=== PATIENT | female | born 1960 | race Caucasian/White ===

== ENCOUNTER → 2016-08-16 | Outpatient (CLI) | payer OTHER ==
--- NOTE | 2016-08-16 17:33 | US ---
EXAMINATION TYPE: US pelvis complete transvag DATE OF EXAM: 08/16/2016 1:39 PM COMPARISON: MRI pelvis 02 February 2011 CLINICAL HISTORY: N95.0 Post menopausal bleeding. Left pelvic pain, h/o uterine fibroid, h/o cervical polyp TECHNIQUE: TA and TV endovaginal scanning performed for better evaluation of the uterus and ovaries Date of LMP: 2 yrs ago EXAM MEASUREMENTS: Uterus: 5.3 x 4.4 x 2.8 cm Endometrial Stripe: 0.4 cm Right Ovary: 1.7 x 2.1 x 2.4 cm Left Ovary: 1.8 x 1.9 x 1.0 cm Grayscale, color Doppler imaging performed. 1. Uterus: Anteverted hypoechoic focus seen with some areas of shadowing, compatible with 2.6cm pro bable fundal fibroid 2. Endometrium: wnl 3. Right Ovary: wnl 4. Left Ovary: wnl 5. Bilateral Adnexa: wnl 6. Posterior cul-de-sac: wnl IMPRESSION: Fibroid uterus.
== END | disposition home or self-care (01) ==
LOC: RADUSWWP 12:40
PROVIDERS: ATTEND Family Medicine
DX: D25.9 Leiomyoma of uterus, unspecified (principal)
CPT/HCPCS: 76830; 76856

== ENCOUNTER → 2016-09-06 | Outpatient (CLI) | payer OTHER ==
--- NOTE | 2016-09-06 11:06 | CT ---
EXAMINATION TYPE: CT ABDOMEN WO/W CON DATE OF EXAM: 09/06/2016 COMPARISON: September 30, 2015 HISTORY: Benign neoplasm of adrenal gland CT DLP: 882 mGycm Automated exposure control for dose reduction was used. TECHNIQUE: Helical acquisition of images was performed from the lung bases through the top of iliac crest to include entire abdomen. CONTRAST: Performed with Oral Contrast and without and with IV Contrast, patient injected with 100 mL of Omnipaque 300. FINDINGS: LUNG BASES: No significant abnormality is appreciated. LIVER/GB: No significant abnormality is appreciated. PANCREAS: No significant abnormality is seen. SPLEEN: No significant abnormality is seen. ADRENALS: The previously seen 3 cm left adrenal nodule remains homogeneous in its CT attenuation and currently demonstrates CT attenuation measuring approximately -15 Hounsfield units with noncontrast C T, approximately 35 Hounsfield units on venous phase contrast CT, and approximately 0 Hounsfield unit s with urogram phase CT. These findings are in keeping with benign adrenal adenoma. KIDNEYS: No significant abnormality is seen. BOWEL: No significant abnormality is seen. LYMPH NODES: No significant abnormality is seen. OSSEOUS STRUCTURES: No significant abnormality is seen. FREE AIR: No free air is visualized. OTHER: No incidentals. IMPRESSION: STABLE APPEARANCE; LEFT ADRENAL NODULE CONSISTENT WITH BENIGN ADRENAL ADENOMA.
== END | disposition home or self-care (01) ==
LOC: RADCTMAIN 06:56
PROVIDERS: ATTEND Internal Medicine Endocrinology, Diabetes & Metabolism
DX: E27.8 Other specified disorders of adrenal gland (principal); D35.00 Benign neoplasm of unspecified adrenal gland
CPT/HCPCS: 74170; Q9967

== ENCOUNTER → 2017-02-01 | Outpatient (CLI) | payer OTHER ==
--- NOTE | 2017-02-01 12:30 | MM ---
Reason for exam: additional evaluation requested from prior study. Last mammogram was performed 1 year ago. History: Patient is postmenopausal and is nulliparous. Family history of breast cancer in mother at age 86, breast cancer in cousin at age 45, and premenopausal breast cancer in sister at age 39. Silicone gel implants in both breasts, August 2011. Physical Findings: Nurse did not find any significant physical abnormalities on exam. MG 3D Diag Mammo Imp W/Cad [facility] Bilateral CC, MLO, and ID view(s) were taken. Prior study comparison: January 20, 2016, bilateral MG diag mamm implants [facility] w CAD. September 04, 2014, bilateral MG diag mamm implants [facility] w CAD. The breast tissue is heterogeneously dense. This may lower the sensitivity of mammography. Finding: There are typically benign stale calcifications dating back to 2013. No suspicious abnormality. No significant changes in finding since January 20, 2016 and September 04, 2014. These results were verbally communicated with the patient and result sheet given to the patient on 02/01/17. ASSESSMENT: Benign, BI-RAD 2 RECOMMENDATION: Routine screening mammogram of both breasts in 1 year.
== END | disposition home or self-care (01) ==
LOC: RADMAMWWP 10:39
PROVIDERS: ATTEND Family Medicine
DX: R92.8 Other abnormal and inconclusive findings on diagnostic imaging of breast (principal)
CPT/HCPCS: G0204; G0279

== ENCOUNTER → 2018-03-16 | Outpatient (CLI) | payer BC ==
--- NOTE | 2018-03-18 11:57 | US ---
EXAMINATION TYPE: US thyroid st tissue head/neck DATE OF EXAM: 03/16/2018 COMPARISON: NONE CLINICAL HISTORY: R59.0 localized enlarged lymph nodes. Lymph nodes noted bilaterally, more prominent on right. Largest measures 1.1 x 0.6 x 0.8cm IMPRESSION: Technologist slaughter prominent but benign-appearing lymph nodes with preservation fatty hi lum that all measures subcentimeter on short axis. No suspicious mass or adenopathy clearly identifie d on images saved.
== END ==
LOC: RADUSWWP 15:59
PROVIDERS: ATTEND Family Medicine
DX: R59.0 Localized enlarged lymph nodes (principal)
CPT/HCPCS: 76536

== ENCOUNTER → 2018-11-12 | Outpatient (CLI) | payer BC ==
[2018-11-12 10:55] LABS: Basophils % (A) 1 %; Eosinophils # (A) 0.1 k/uL (0-0.7); Eosinophils % (A) 2 %; HCT 42.4 % (34.0-46.0); HGB 14.1 gm/dL (11.4-16.0); Lymphocytes # (A) 1.8 k/uL (1.0-4.8); Lymphocytes % (A) 30 %; MCH 28.5 pg (25.0-35.0); MCHC 33.2 g/dL (31.0-37.0); MCV 85.7 fL (80.0-100.0); Mean Platelet Volume 7.6; Monocytes # (A) 0.4 k/uL (0-1.0); Monocytes % (A) 6 %; Neutrophils # (A) 3.7 k/uL (1.3-7.7); Neutrophils % (A) 60 %; Platelet Count 227 k/uL (150-450); RBC 4.95 m/uL (3.80-5.40); RDW 13.1 % (11.5-15.5); WBC 6.1 k/uL (3.8-10.6)
[2018-11-12 16:23] LABS: Vitamin D 25 Hydroxy 23.4 ng/mL (30.0-100.0)
[2018-11-12 16:29] LABS: African American GFR (CKD) 111.5 (60.0-200.0); Albumin 3.9 g/dL (3.80-4.90); Albumin/Globulin Ratio 2.29 (1.60-3.17); Anion Gap 5.8 mmol/L (4.00-12.00); BUN/Creat Ratio 22.86 Ratio (12.00-20.00); Calcium 9.4 mg/dL (8.7-10.3); Carbon Dioxide 29.2 mmol/L (21.6-31.8); Globulin 1.7 g/dL (1.6-3.3); Non-African American GFR(CKD) 96.2 (60.0-200.0); Potassium 4.6 mmol/L (3.5-5.5); Total Bilirubin 0.5 mg/dL (0.2-1.2); Total Protein 5.6 g/dL (6.2-8.2)
== END | disposition home or self-care (01) ==
LOC: LABWHC1 09:50
PROVIDERS: ATTEND Family Medicine
DX: R53.81 Other malaise (principal)
CPT/HCPCS: 36415; 80053; 82306; 82607; 84443; 85025

== ENCOUNTER → 2018-11-23 | Outpatient (CLI) | payer BC ==
--- NOTE | 2018-11-28 09:10 | MM ---
Reason for exam: screening (asymptomatic). Last mammogram was performed 1 year and 10 months ago. History: Patient is postmenopausal and is nulliparous. Family history of breast cancer in mother at age 86, breast cancer in cousin at age 45, and premenopausal breast cancer in sister at age 39. Silicone gel implants in both breasts, August 2011. Physical Findings: A clinical breast exam by your physician is recommended on an annual basis and results should be correlated with mammographic findings. MG Screening Mammo Implant/CAD Bilateral CC, MLO, and ID view(s) were taken. Prior study comparison: February 01, 2017, bilateral MG 3d diag mammo imp w/cad [facility]. January 20, 2016, bilateral MG diag mamm implants [facility] w CAD. The breast tissue is heterogeneously dense. This may lower the sensitivity of mammography. Bilateral retropectoral silicone implants. No significant changes when compared with prior studies. ASSESSMENT: Negative, BI-RAD 1 RECOMMENDATION: Routine screening mammogram of both breasts in 1 year.
== END ==
LOC: RADMAMWWP 12:44
PROVIDERS: ATTEND Family Medicine
DX: Z12.31 Encounter for screening mammogram for malignant neoplasm of breast (principal)
CPT/HCPCS: 77067

== ENCOUNTER → 2019-01-14 | Outpatient (CLI) | payer BC ==
--- NOTE | 2019-01-14 10:08 | XR ---
EXAMINATION TYPE: XR foot complete RT DATE OF EXAM: 01/14/2019 COMPARISON: None HISTORY: Right foot pain TECHNIQUE: 3 view right foot FINDINGS: No acute fractures or dislocations are evident. Joint spaces are preserved. The soft tissue s are normal. Large Achilles tendon calcaneal heel spurs present. IMPRESSION: 1. No acute osseous abnormality. 2. Follow-up studies can be performed 710 days acute trauma and continued pain.
== END | disposition home or self-care (01) ==
LOC: RADXRMAIN 09:50
PROVIDERS: ATTEND Physician Assistant
DX: M79.671 Pain in right foot (principal)

== ENCOUNTER 2019-02-11 15:28 | Emergency (ER) | payer BC ==
[2019-02-11 15:41] VITALS: RESP 18
[2019-02-11] MEDS ORDERED: ACETAMINOPHEN TAB 500 MG TAB PO STA (16:16)
[2019-02-11] MEDS ORDERED: SODIUM CHLORIDE 0.9% 1,000 ML IV STA (16:16)
[2019-02-11] MEDS ORDERED: ONDANSETRON 4 MG/2 ML VIAL IVP STA (16:16)
--- NOTE | 2019-02-11 16:36 | ED ---
General Adult HPI - General Chief complaint: Abdominal Pain Stated complaint: Losing weight Time Seen by Provider: 02/11/19 15:57 Source: patient Mode of arrival: ambulatory Limitations: no limitations - History of Present Illness Initial comments: Patient is a 58-year-old female presenting to emergency Department with complaints of nausea, vomiting, cough for about one week now. Patient states she thinks she had the stomach flu one week ago with fever, nausea, vomiting, diarrhea. Patient states most her symptoms have decreased some but she is still unable to eat and she has lost approximately 10 pounds in 5 days. Patient states she feels fatigued and now has had a cough and fever for the last 3 days. Patient continues to feel weak and mild nausea. Patient denies any more diarrhea, chest pain, headaches, blurry vision. Patient has denies any urinary complaints. Patient has no other complaints at this time. Upon arrival to the ER, temperature is 99.8, rest of vitals are normal. - Related Data Home Medications Medication Instructions Recorded Confirmed Cholecalciferol [Vitamin D3] 2,000 unit PO DAILY 01/20/16 01/20/16 Ferrous Sulfate [Feosol] 325 mg PO DAILY 01/20/16 01/20/16 Previous Rx's Medication Instructions Recorded Doxycycline Monohydrate [Monodox] 100 mg PO BID 7 Days #14 cap 02/11/19 Ondansetron Odt [Zofran Odt] 4 mg PO Q8HR PRN #10 tab 02/11/19 Allergies Allergy/AdvReac Type Severity Reaction Status Date / Time codeine Allergy Confusion Verified 02/11/19 15:34 erythromycin base Allergy Rash/Hives Verified 02/11/19 15:34 Review of Systems ROS Statement: Those systems with pertinent positive or pertinent negative responses have been documented in the HPI. ROS Other: All systems not noted in ROS Statement are negative. Past Medical History Past Medical History: No Reported History Additional Past Medical History / Comment(s): 08/11/[address] [facility] ER with back pain radiating to chest which has been going on for approximately 2 weeks. Pain became severe yesterday AM and started radiating into L arm. Pt noticed L arm pain was less if she elevated that arm. Past HX: Hiatal hernia, anemia History of Any Multi-Drug Resistant Organisms: None Reported Past Surgical History: Breast Surgery Additional Past Surgical History / Comment(s): Bilateral breast augmentation, EGD Past Anesthesia/Blood Transfusion Reactions: Motion Sickness Past Psychological History: Depression Smoking Status: Never smoker Past Alcohol Use History: None Reported Past Drug Use History: None Reported - Past Family History Father Family Medical History: Coronary Artery Disease (CAD), Dementia, Myocardial Infarction ([place]) Mother Family Medical History: Cancer, Coronary Artery Disease (CAD), Dementia, Diabetes Mellitus, GI Bleed, Myocardial Infarction ([place]) Additional Family Medical History / Comment(s): Mother had breast cancer. Pt has a 1st cousin who recieved a heart transplant. Sister(s) Family Medical History: Cancer, Coronary Artery Disease (CAD), Seizure Disorder Additional Family Medical History / Comment(s): Sister is . She had breast cancer. She was developmentally delayed. She also had epilepsy. General Exam - General Exam Comments Initial Comments: GENERAL: Patient appears fatigued, hunched over in discomfort. HEAD: Atraumatic, normocephalic. EYES: Pupils equal round and reactive to light, extraocular movements intact, sclera anicteric, conjunctiva are normal. ENT: TMs normal, nares patent, oropharynx clear without exudates. Moist mucous membranes. NECK: Normal range of motion, supple without lymphadenopathy or JVD. LUNGS: Breath sounds clear to auscultation bilaterally and equal. No wheezes rales or rhonchi. HEART: Regular rate and rhythm without murmurs, rubs or gallops. ABDOMEN: Mild generalized tenderness to palpation in epigastric and mid abdomen region. Soft, normoactive bowel sounds. No guarding, no rebound. No masses appreciated. : Deferred EXTREMITIES: Normal range of motion, no pitting or edema. No clubbing or cyanosis. NEUROLOGICAL: Cranial nerves II through XII grossly intact. Normal speech, normal gait. PSYCH: Normal mood, normal affect. SKIN: Warm, Dry, normal turgor, no rashes or lesions noted. Limitations: no limitations Course Vital Signs 02/11/19 02/11/19 02/11/19 15:34 16:45 17:28 Temperature 99.8 F H 99.1 F Pulse Rate 73 76 Respiratory 18 18 18 Rate Blood Pressure 102/65 110/69 O2 Sat by Pulse 94 L 94 L Oximetry 02/11/19 02/11/19 17:50 18:31 Temperature 100.9 F H Pulse Rate 67 Respiratory 18 Rate Blood Pressure 106/73 O2 Sat by Pulse 97 94 L Oximetry Medical Decision Making - Medical Decision Making Patient is a 58-year-old female presenting with fatigue, nausea, cough. Patient is recently getting over a stomach flu. Patient had slight temperature upon arrival, rest of vital signs are normal. Patient's exam only reveals some mild generalized abdominal tenderness. No other acute findings on exam. Lab work shows no acute abnormalities, influenza is negative. Chest x-ray shows right lower lobe pneumonia. I did request a UA to rule out a UTI however patient not able to produce a urine sample at this time and does not want to wait for a ur ine sample. I discussed with patient that we will start her on antibiotics for her pneumonia. Patient will be started on doxycycline since she is ALLERGIC to azithromycin. Patient was also given Zofran for occasional nausea. Patient will also continue with Tylenol or Motrin as needed for her fever. Patient is stable for discharge at this time and she is in agreement with this plan of care. Patient will follow up with her PCP in 1- 3 days. Return parameters were discussed with the patient she verbalized understanding. Case discussed with Dr. Palmer. - Lab Data Result diagrams: 02/11/19 16:37 02/11/19 16:37 Lab Results 02/11/19 02/11/19 02/11/19 Range/Units 16:30 16:37 16:37 WBC 8.4 (3.8-10.6) k/uL RBC 4.65 (3.80-5.40) m/uL Hgb 13.4 (11.4-16.0) gm/dL Hct 38.9 (34.0-46.0) % MCV 83.8 (80.0-100.0) fL MCH 28.8 (25.0-35.0) pg MCHC 34.4 (31.0-37.0) g/dL RDW 12.5 (11.5-15.5) % Plt Count 230 (150-450) k/uL Neutrophils % 86 % Lymphocytes % 7 % Monocytes % 5 % Eosinophils % 0 % Basophils % 0 % Neutrophils # 7.2 (1.3-7.7) k/uL Lymphocytes # 0.6 L (1.0-4.8) k/uL Monocytes # 0.4 (0-1.0) k/uL Eosinophils # 0.0 (0-0.7) k/uL Basophils # 0.0 (0-0.2) k/uL Sodium 135 L (137-145) mmol/L Potassium 4.1 (3.5-5.1) mmol/L Chloride 103 (98-107) mmol/L Carbon Dioxide 26 (22-30) mmol/L Anion Gap 6 mmol/L BUN 8 (7-17) mg/dL Creatinine 0.71 (0.52-1.04) mg/dL Est GFR (CKD-EPI)AfAm >90 (>60 ml/min/1.73 sqM) Est GFR (CKD-EPI)NonAf >90 (>60 ml/min/1.73 sqM) Glucose 106 H (74-99) mg/dL Calcium 8.6 (8.4-10.2) mg/dL Total Bilirubin 0.6 (0.2-1.3) mg/dL AST 27 (14-36) U/L ALT 22 (9-52) U/L Alkaline Phosphatase 64 (38-126) U/L Total Protein 5.8 L (6.3-8.2) g/dL Albumin 3.2 L (3.5-5.0) g/dL Influenza Type A RNA Not Detected (Not Detectd) Influenza Type B (PCR) Not Detected (Not Detectd) Disposition Clinical Impression: Pneumonia, Dehydration, Gastroenteritis Disposition: HOME SELF-CARE Condition: Stable Instructions (If sedation given, give patient instructions): Bacterial Pneumonia (ED) Additional Instructions: Please return to the Emergency Department if symptoms worsen or any other concerns. Take anabolic as prescribed. Use Zofran as needed for additional nausea. Continue to increase fluid intake and introduce foods slowly. Follow-up with PCP in 1- 3 days. Prescriptions: Doxycycline Monohydrate [Monodox] 100 mg PO BID 7 Days #14 cap Ondansetron Odt [Zofran Odt] 4 mg PO Q8HR PRN #10 tab PRN Reason: Nausea Is patient prescribed a controlled substance at d/c from ED?: No Referrals: Jacob Velásquez MD [Primary Care Provider] - 1-2 days
--- NOTE | 2019-02-11 16:36 | XR ---
EXAMINATION TYPE: XR chest 2V DATE OF EXAM: 02/11/2019 COMPARISON: 08/11/2014 HISTORY: Cough and congestion TECHNIQUE: Frontal and lateral views of the chest are obtained. FINDINGS: There is a new right lower lobe opacity. Emphysematous changes of the lungs with biapical lucency is seen. Diffuse osseous demineralization is noted. Mediastinal shift to the right secondary to patient rotation. IMPRESSION: Right lower lobe consolidation most radiographically compatible with pneumonia and trace parapneumonic effusion. Follow-up to resolution is recommended.
[2019-02-11 17:27] LABS: Basophils % (A) 0 %; Eosinophils % (A) 0 %; HCT 38.9 % (34.0-46.0); HGB 13.4 gm/dL (11.4-16.0); Lymphocytes # (A) 0.6 k/uL (1.0-4.8); Lymphocytes % (A) 7 %; MCH 28.8 pg (25.0-35.0); MCHC 34.4 g/dL (31.0-37.0); MCV 83.8 fL (80.0-100.0); Monocytes # (A) 0.4 k/uL (0-1.0); Monocytes % (A) 5 %; Neutrophils # (A) 7.2 k/uL (1.3-7.7); Neutrophils % (A) 86 %; Platelet Count 230 k/uL (150-450); RBC 4.65 m/uL (3.80-5.40); RDW 12.5 % (11.5-15.5); WBC 8.4 k/uL (3.8-10.6)
[2019-02-11 17:34] LABS: ALT 22 U/L (9-52); AST 27 U/L (14-36); African American GFR (CKD) >90 (>60 ml/min/1.73 sqM); Albumin 3.2 g/dL (3.5-5.0); Alkaline Phosphatase 64 U/L (38-126); Anion Gap 6 mmol/L; Blood Urea Nitrogen 8 mg/dL (7-17); Calcium 8.6 mg/dL (8.4-10.2); Carbon Dioxide 26 mmol/L (22-30); Chloride 103 mmol/L (98-107); Glucose 106 mg/dL (74-99); Non-African American GFR(CKD) >90 (>60 ml/min/1.73 sqM); Potassium 4.1 mmol/L (3.5-5.1); Sodium 135 mmol/L (137-145); Total Bilirubin 0.6 mg/dL (0.2-1.3); Total Protein 5.8 g/dL (6.3-8.2)
[2019-02-11] MEDS ORDERED: DOXYCYCLINE 100 MG CAP PO STA (18:13)
[2019-02-11 18:33] VITALS: BP 106/73; PULSE 67; TEMP 100.9
== END 2019-02-11 18:31 | disposition home or self-care (01) ==
LOC: EC 15:28
DX: K21.9 Gastro-esophageal reflux disease without esophagitis (principal); J18.9 Pneumonia, unspecified organism; E86.0 Dehydration; D64.9 Anemia, unspecified; Z88.5 Allergy status to narcotic agent; Z88.1 Allergy status to other antibiotic agents
CPT/HCPCS: 36415; 80053; 85025; 87502; 71046; 99284; 96374; 96361; J2405

== ENCOUNTER → 2019-03-07 | Outpatient (CLI) | payer BC ==
--- NOTE | 2019-03-07 17:11 | XR ---
Right RIBS and chest x-ray HISTORY: Chest pain 4 views of the right ribs and 2 views of the chest Correlation to chest x-ray 02/11/2019 There is no evident displaced rib fracture. There is a spinal curvature present. There is been interv al improved aeration at the right lung base, some minimal subsegmental atelectatic change or scarring persists. No evident pneumothorax or pleural effusion. Breast prostheses are present. IMPRESSION: Improvement in patient's pneumonia.
== END | disposition home or self-care (01) ==
LOC: RADXRMAIN 15:46
PROVIDERS: ATTEND Physician Assistant
DX: J18.9 Pneumonia, unspecified organism (principal)
CPT/HCPCS: 71046

== ENCOUNTER → 2019-03-18 | Outpatient (CLI) | payer BC ==
--- NOTE | 2019-03-18 14:53 | XR ---
EXAMINATION TYPE: XR chest 2V, XR ribs RT DATE OF EXAM: 03/18/2019 COMPARISON: NONE HISTORY: Shortness of breath TECHNIQUE: Frontal and lateral views of the chest are obtained. FINDINGS: Scattered senescent parenchymal changes noted. Hyperinflation compatible with COPD. No evidence for infiltrate. No evidence for atelectasis. Heart size is stable. Mediastinal structures are stable and grossly unremarkable. No evidence for hilar prominence. Degenerative changes dorsal spine. IMPRESSION: 1. No evidence for acute pulmonary disease. EXAMINATION TYPE: XR chest 2V, XR ribs RT DATE OF EXAM: 03/18/2019 CLINICAL HISTORY: Pain, Fall Four views of the ribs fail demonstrate evidence for displaced rib fracture or secondary sign of rib fracture. Visualized lungs are clear. No evidence for pneumothorax. IMPRESSION: 1. No displaced rib fractures seen. ICD 10 NO FRACTURE, INITIAL EVALUATION
== END | disposition home or self-care (01) ==
LOC: RADXRMAIN 14:25
PROVIDERS: ATTEND Family Medicine
DX: R07.89 Other chest pain (principal)
CPT/HCPCS: 71046

== ENCOUNTER → 2019-03-28 | Outpatient (CLI) | payer BC ==
[2019-03-28 07:32] LABS: Basophils % (A) 1 %; Eosinophils # (A) 0.1 k/uL (0-0.7); Eosinophils % (A) 2 %; HCT 41.8 % (34.0-46.0); HGB 13.8 gm/dL (11.4-16.0); Lymphocytes # (A) 1.5 k/uL (1.0-4.8); Lymphocytes % (A) 33 %; MCH 29.1 pg (25.0-35.0); MCHC 32.9 g/dL (31.0-37.0); MCV 88.3 fL (80.0-100.0); Mean Platelet Volume 8.4; Monocytes # (A) 0.2 k/uL (0-1.0); Monocytes % (A) 5 %; Neutrophils # (A) 2.6 k/uL (1.3-7.7); Neutrophils % (A) 58 %; Platelet Count 222 k/uL (150-450); RBC 4.74 m/uL (3.80-5.40); RDW 13.1 % (11.5-15.5); WBC 4.5 k/uL (3.8-10.6)
[2019-03-28 12:04] LABS: African American GFR (CKD) 111.5 (60.0-200.0); Albumin 3.7 g/dL (3.80-4.90); Albumin/Globulin Ratio 2.47 (1.60-3.17); BUN/Creat Ratio 17.14 Ratio (12.00-20.00); Calcium 9.2 mg/dL (8.7-10.3); Chol/HDL Ratio 2.91; Globulin 1.5 g/dL (1.6-3.3); LDL Cholesterol,Calculated 115.4 mg/dL (0.0-131.0); Non-African American GFR(CKD) 96.2 (60.0-200.0); Potassium 5.6 mmol/L (3.5-5.5); Total Bilirubin 0.5 mg/dL (0.3-1.2); Total Protein 5.2 g/dL (6.2-8.2); VLDL Calculation 10.6 mg/dL (5.00-40.00)
== END | disposition home or self-care (01) ==
LOC: LABWHC1 06:57
PROVIDERS: ATTEND Family Medicine
DX: Z00.00 Encounter for general adult medical examination without abnormal findings (principal)
CPT/HCPCS: 36415; 80053; 80061; 82306; 85025

== ENCOUNTER → 2019-04-01 | Outpatient (CLI) | payer BC | LOC: LABWHC1 13:53 | PROVIDERS: ATTEND Family Medicine | DX: E87.5 Hyperkalemia (principal) | CPT/HCPCS: 36415; 84132 ==

== ENCOUNTER → 2019-04-24 | Outpatient (CLI) | payer BC ==
--- NOTE | 2019-04-24 21:37 | CT ---
EXAMINATION TYPE: CT angio chest DATE OF EXAM: 04/24/2019 COMPARISON: CT chest July 30, [address] May 28, 2015 HISTORY: chest pain CT DLP: 174.3 mGycm. Automated Exposure Control for Dose Reduction was Utilized. CONTRAST: CTA scan of the thorax is performed with IV Contrast, patient injected with 61cc mL of Isovue 370, pu lmonary embolism protocol. MIP Images are created on CT scanner and reviewed. FINDINGS: LUNGS: Stable subcentimeter scarlike opacity posterior inferior right upper lobe axial image 59. Tommy tional mild scattered areas of scarring and/or atelectasis throughout both lungs most prominent near diaphragm. No new greater than 5 mm nodules or masses. No pleural effusion or pneumothorax noted bila terally. Stable mild biapical pleural/parenchymal scarring. MEDIASTINUM: There is satisfactory enhancement of the pulmonary artery and its branches, there is no CT evidence for pulmonary embolism. There are no greater than 1 cm hilar or mediastinal lymph nodes. No pericardial effusion is seen. Heart size upper limits of normal. OTHER: Stable low dense 2.2 x 1.7 cm left adrenal mass axial image 150 consistent with benign lipid r ich adenoma. Redemonstration of bilateral subpectoral breast implants. Occasional subcentimeter low d ense lesions throughout the liver is stable presumed benign. IMPRESSION: 1. Chronic parenchymal changes without suspicious acute pulmonary process. 2. No CT evidence for acute pulmonary embolism.
== END | disposition home or self-care (01) ==
LOC: RADCTMAIN 16:29
PROVIDERS: ATTEND Internal Medicine Sleep Medicine
DX: I26.99 Other pulmonary embolism without acute cor pulmonale (principal); R91.8 Other nonspecific abnormal finding of lung field; R07.9 Chest pain, unspecified
CPT/HCPCS: 71275; 36415; Q9967

== ENCOUNTER → 2019-07-31 | Outpatient (CLI) | payer BC ==
[2019-07-31 10:41] LABS: Basophils % (A) 1 %; Eosinophils # (A) 0.1 k/uL (0-0.7); Eosinophils % (A) 3 %; HCT 43.3 % (34.0-46.0); HGB 14.1 gm/dL (11.4-16.0); Lymphocytes # (A) 1.5 k/uL (1.0-4.8); Lymphocytes % (A) 34 %; MCH 28.2 pg (25.0-35.0); MCHC 32.6 g/dL (31.0-37.0); MCV 86.5 fL (80.0-100.0); Mean Platelet Volume 8.3; Monocytes # (A) 0.3 k/uL (0-1.0); Monocytes % (A) 6 %; Neutrophils # (A) 2.3 k/uL (1.3-7.7); Neutrophils % (A) 54 %; Platelet Count 220 k/uL (150-450); RDW 12.7 % (11.5-15.5); WBC 4.3 k/uL (3.8-10.6)
[2019-07-31 15:38] LABS: African American GFR (CKD) 94.9 (60.0-200.0); Albumin 4.2 g/dL (3.80-4.90); Albumin/Globulin Ratio 1.91 (1.60-3.17); Anion Gap 5.2 mmol/L (4.00-12.00); BUN/Creat Ratio 22.5 Ratio (12.00-20.00); Calcium 9.9 mg/dL (8.7-10.3); Carbon Dioxide 28.8 mmol/L (21.6-31.8); Globulin 2.2 g/dL (1.6-3.3); Non-African American GFR(CKD) 81.8 (60.0-200.0); Potassium 4.5 mmol/L (3.5-5.5); Total Bilirubin 0.5 mg/dL (0.2-1.2); Total Protein 6.4 g/dL (6.2-8.2)
== END | disposition home or self-care (01) ==
LOC: LABWHC1 09:29
PROVIDERS: ATTEND Family Medicine
DX: E87.5 Hyperkalemia (principal)
CPT/HCPCS: 36415; 80053; 82306; 85025

== ENCOUNTER → 2019-12-10 | Outpatient (CLI) | payer BC ==
[2019-12-10 16:37] LABS: Basophils % (A) 1 %; Eosinophils # (A) 0.1 k/uL (0-0.7); Eosinophils % (A) 3 %; Lymphocytes # (A) 1.7 k/uL (1.0-4.8); Lymphocytes % (A) 33 %; MCH 27.9 pg (25.0-35.0); MCHC 31.7 g/dL (31.0-37.0); Mean Platelet Volume 8.3; Monocytes # (A) 0.3 k/uL (0-1.0); Monocytes % (A) 6 %; Neutrophils % (A) 56 %; Platelet Count 228 k/uL (150-450); RDW 12.8 % (11.5-15.5); WBC 5.3 k/uL (3.8-10.6)
[2019-12-11 01:47] LABS: African American GFR (CKD) 81.7 (60.0-200.0); Albumin 4.5 g/dL (3.80-4.90); Albumin/Globulin Ratio 1.8 (1.60-3.17); BUN/Creat Ratio 21.11 Ratio (12.00-20.00); Calcium 9.3 mg/dL (8.7-10.3); Globulin 2.5 g/dL (1.6-3.3); Non-African American GFR(CKD) 70.5 (60.0-200.0); Potassium 4.3 mmol/L (3.5-5.5); Total Bilirubin 0.3 mg/dL (0.3-1.2)
[2019-12-11 13:54] LABS: INR 0.93 (0.90-1.11); Partial Thromboplastin Time 28.2 sec (24.7-29.9)
== END | disposition home or self-care (01) ==
LOC: LABWHC1 15:57
PROVIDERS: ATTEND Family Medicine
DX: Z01.818 Encounter for other preprocedural examination (principal)
CPT/HCPCS: 36415; 80053; 84443; 85025; 85610; 85730

== ENCOUNTER → 2019-12-17 | Outpatient (CLI) | payer BC ==
[2019-12-18 12:22] LABS: Alt. alternata IgE Class CLASS 0; Alternaria alternata IgE <0.10 kU/L (<0.10); Asperg. fumagatus IgE <0.10 kU/L (<0.10); Asperg. fumagatus IgE Class CLASS 0; Candida albicans IgE Class CLASS 0; Clad herbarum IgE <0.10 kU/L (<0.10); Clad herbarum IgE Class CLASS 0; Latex IgE Class CLASS 0; Mucor racemosus IgE <0.10 kU/L (<0.10); Mucor racemosus IgE Class CLASS 0; Penicillium chrysogenum IgE <0.10 kU/L (<0.10); Penicillium chrysogenum IgE Cl CLASS 0
== END | disposition home or self-care (01) ==
LOC: LABWHC1 13:20
PROVIDERS: ATTEND Internal Medicine Sleep Medicine
DX: B44.81 Allergic bronchopulmonary aspergillosis (principal); B44.1 Other pulmonary aspergillosis
CPT/HCPCS: 36415; 82785; 86001; 86003; 86606; 86609

== ENCOUNTER → 2020-01-21 | Outpatient (CLI) | payer BC ==
--- NOTE | 2020-01-22 11:37 | MM ---
Reason for exam: screening (asymptomatic). Last mammogram was performed 1 year and 2 months ago. History: Patient is postmenopausal and is nulliparous. Family history of breast cancer in mother at age 86, breast cancer in cousin at age 45, and premenopausal breast cancer in sister at age 39. Silicone gel implants in both breasts, August 2011. Physical Findings: A clinical breast exam by your physician is recommended on an annual basis and results should be correlated with mammographic findings. MG Screening Mammo Implant/CAD Bilateral CC and MLO view(s) were taken. Prior study comparison: November 23, 2018, bilateral MG screening mammo implant/CAD. February 01, 2017, bilateral MG 3d diag mammo imp w/cad [facility]. The breast tissue is heterogeneously dense. This may lower the sensitivity of mammography. There are benign appearing round calcifications bilaterally. There is no discrete abnormality. Asymmetric breast tissue left upper outer quadrant, stable. Bilateral subpectoral implants redemonstrated. ASSESSMENT: Benign, BI-RAD 2 RECOMMENDATION: Routine screening mammogram of both breasts in 1 year.
== END | disposition home or self-care (01) ==
LOC: RADMAMWWP 09:04
PROVIDERS: ATTEND Family Medicine
DX: Z12.31 Encounter for screening mammogram for malignant neoplasm of breast (principal)
CPT/HCPCS: 77067

== ENCOUNTER → 2020-03-23 | Outpatient (CLI) | payer BC ==
[2020-03-23 15:51] LABS: Basophils # (A) 0.1 k/uL (0-0.2); Basophils % (A) 2 %; Eosinophils # (A) 0.1 k/uL (0-0.7); Eosinophils % (A) 2 %; HCT 41.2 % (34.0-46.0); Lymphocytes # (A) 1.9 k/uL (1.0-4.8); Lymphocytes % (A) 35 %; MCH 29.2 pg (25.0-35.0); MCHC 33.9 g/dL (31.0-37.0); MCV 86.1 fL (80.0-100.0); Mean Platelet Volume 8.3; Monocytes # (A) 0.3 k/uL (0-1.0); Monocytes % (A) 5 %; Neutrophils # (A) 2.9 k/uL (1.3-7.7); Neutrophils % (A) 54 %; Platelet Count 197 k/uL (150-450); RBC 4.78 m/uL (3.80-5.40); RDW 12.5 % (11.5-15.5); WBC 5.4 k/uL (3.8-10.6)
[2020-03-23 23:58] LABS: Chol/HDL Ratio 2.72; Cholesterol 182 mg/dL (0-200); Triglycerides <50.0 mg/dL (0.0-149.0)
[2020-03-23 23:59] LABS: ALT 18 U/L (8-44); AST 26 U/L (13-35); African American GFR (CKD) 94.2 (60.0-200.0); Albumin/Globulin Ratio 1.83 (1.60-3.17); Alkaline Phosphatase 67 U/L (41-126); Calcium 9.6 mg/dL (8.7-10.3); Carbon Dioxide 28.9 mmol/L (21.6-31.8); Chloride 106 mmol/L (96-109); Globulin 2.4 g/dL (1.6-3.3); Glucose 83 mg/dL (70-110); Non-African American GFR(CKD) 81.3 (60.0-200.0); Potassium 4.2 mmol/L (3.5-5.5); Sodium 141 mmol/L (135-145); Total Bilirubin 0.5 mg/dL (0.3-1.2); Total Protein 6.8 g/dL (6.2-8.2)
== END | disposition home or self-care (01) ==
LOC: LABWHC1 15:28
PROVIDERS: ATTEND Family Medicine
DX: Z00.00 Encounter for general adult medical examination without abnormal findings (principal); K21.9 Gastro-esophageal reflux disease without esophagitis
CPT/HCPCS: 36415; 80053; 80061; 82306; 85025

== ENCOUNTER → 2020-04-01 | Outpatient (CLI) | payer BC ==
--- NOTE | 2020-04-02 07:36 | US ---
EXAMINATION TYPE: US thyroid st tissue head/neck DATE OF EXAM: 04/01/2020 COMPARISON: No thyroid ultrasound CLINICAL HISTORY: E04.1 Nontoxic single thyroid nodule. difficulty swallowing GLAND SIZE: Right Lobe: 5.0 x 1.4 x 1.8 cm Overall Parenchyma: homogenous Left Lobe: 5.9 x 1.7 x 1.7 cm Overall Parenchyma: homogeneous Isthmus Thickness: 0.3 cm NODULES RIGHT: # of nodules measured on right: 1 1. 0.6 X 0.4 x 0.5 cm inferior pole mixed, anechoic nodule, which is wider than tall, with smooth m argins, with echogenic foci. Prior size: no prior LEFT: # of nodules measured on left: 1 1. 0.6 X 0.6 x 0.6 cm mid pole mixed, anechoic nodule, which is wider than tall, with smooth margin s, with echogenic foci. Prior size: no prior ISTHMUS: # of nodules measured in the isthmus: 0 Bilateral neck scanned, no evidence of abnormal lymphadenopathy. IMPRESSION: Moderately suspicious subcentimeter nodules. Monitoring is recommended. Follow-up thyroid ultrasound in one year is recommended. 2017 ACR TI-RADS LEVEL: 4 *Highest TI-RADS level nodule reported
== END | disposition home or self-care (01) ==
LOC: RADUSWWP 16:50
PROVIDERS: ATTEND Family Medicine
DX: E04.1 Nontoxic single thyroid nodule (principal)
CPT/HCPCS: 76536

== ENCOUNTER → 2020-04-24 | Outpatient (CLI) | payer BC ==
--- NOTE | 2020-04-24 08:25 | CT ---
EXAMINATION TYPE: CT chest wo con DATE OF EXAM: 04/24/2020 COMPARISON: CT chest April 24, 2019 and older studies 2016. HISTORY: Pulmonary fibrosis CT DLP: 145.60 mGycm. Automated Exposure Control for Dose Reduction was Utilized. TECHNIQUE: CT scan of the thorax is performed without IV contrast. FINDINGS: LUNGS: Mild peripheral parenchymal scarring in the upper lungs bilaterally remains present. Subcentim eter scarlike opacity posterior right upper lobe axial image 24 is stable or slightly less prominent with perhaps 3 mm anterior nodular component is less prominent from most recent CT. Less prominent f rom 2016 studies. Stable subcentimeter near 1.0 cm scarlike opacity in the anterior inferior right up per lobe axial image 32 from older studies. Mild/moderate linear scarring anteriorly in the right marian g base is stable. There is no pleural effusion or pneumothorax seen bilaterally. The tracheobronchia l tree is patent. MEDIASTINUM: Lack of IV contrast is noted to limit evaluation for mediastinal and especially hilar ad enopathy. There are no definitive greater than 1 cm hilar or mediastinal lymph nodes. No cardiomega ly or pericardial effusion is seen. Prominent main pulmonary artery at 3.0 cm redemonstrated. Adjacen t ascending aorta measures up to 3.5 cm stable. OTHER: S shaped scoliosis. Disc calcification T10-T11 and T11-T12 levels. Stable low dense 2.3 x 1.5 cm left adrenal mass consistent with benign lipid rich adenoma from 2016 studies. Interval removal of bilateral breast implants. Occasional subcentimeter hypodense lesions throughout the liver redemonst rated presumed benign. IMPRESSION: Chronic parenchymal changes stable or improved from older studies. No new acute pulmonary process.
== END | disposition home or self-care (01) ==
LOC: RADCTMAIN 06:19
PROVIDERS: ATTEND Internal Medicine Sleep Medicine
DX: J98.4 Other disorders of lung (principal)
CPT/HCPCS: 71250

== ENCOUNTER 2020-05-11 07:27 | Day surgery (SDC) | payer BC ==
[2020-05-07 10:57] VITALS: BMI 23.3
[~2020-05-11 07:27] MED LIST: LACTATED RINGERS 1,000 ML IV SCH
[2020-05-11 07:52] VITALS: TEMP 97.1
[2020-05-11] MEDS ORDERED: LIDOCAINE 1% (10MG/ML) FOR IV START INTRADERMA ONE (07:58)
--- NOTE | 2020-05-11 08:51 | P.PCN ---
Date of Procedure: 05/11/20 Description of Procedure: BRIEF HISTORY: Patient is a 59-year-old female presenting for outpatient esophagogastroduodenoscopy for evaluation of nausea. Patient has had symptoms of persistent nausea over the past year, reflux and belching. Currently on omeprazole daily. PROCEDURE PERFORMED: Esophagogastroduodenoscopy with biopsy. PREOPERATIVE DIAGNOSIS: Nausea, reflux, belching. ESTIMATED BLOOD LOSS: Minimal. IV sedation per anesthesia. PROCEDURE: After informed consent was obtained, the patient was brought into the endoscopy unit. IV sedation was administered by Anesthesia under continuous monitoring. Initially the Olympus GIF-190 video endoscope was inserted into the mouth. Esophagus intubated without any difficulty. It was gradually advanced into the stomach and duodenum and carefully examined. The bulb and the second part of the duodenum appeared normal, with biopsies taken. The scope at this time was withdrawn to the stomach, adequately insufflated with air, and upon careful examination, mucosa of the antrum, body, cardia and the fundus appeared normal, except for some mild punctate erythema in the antrum and body suggestive of mild gastritis with biopsies taken. The scope was then withdrawn into the esophagus. The GE junction was located at 39 cm from the incisors and biopsied. The esophagus appeared normal. There were no erosions or ulcerations seen and the patient tolerated the procedure well. IMPRESSION: 1. Mild gastritis. 2. Biopsies of the duodenum, antrum body and GE junction. RECOMMENDATIONS: The findings of this examination were discussed with the patient and her family. Okay to resume diet. Okay to resume medications. Await pathology from biopsies. Continue omeprazole therapy. Follow-up in the GI clinic in the next 1-2 weeks as previously scheduled for results of biopsies.
[2020-05-11] MEDS ORDERED: PROPOFOL 10 MG/ML 20 ML VIAL IV ONE (08:53)
[2020-05-11 09:08] VITALS: BP 116/77; PULSE 64; RESP 20
== END 2020-05-11 09:29 | disposition home or self-care (01) ==
LOC: ORWHC2ENDO 07:27
PROVIDERS: ATTEND Internal Medicine
DX: K29.50 Unspecified chronic gastritis without bleeding (principal); K21.9 Gastro-esophageal reflux disease without esophagitis; Z88.1 Allergy status to other antibiotic agents; Z88.5 Allergy status to narcotic agent
CPT/HCPCS: 88305; 43239; J2704

== ENCOUNTER → 2020-06-02 | Outpatient (CLI) | payer BC ==
[2020-06-02 18:40] LABS: Basophils # (A) 0.04 X 10*3/uL (0.00-0.10); Basophils % (A) 0.7 %; Eosinophils # (A) 0.14 X 10*3/uL (0.04-0.35); Eosinophils % (A) 2.3 %; HCT 41.4 % (37.2-46.3); HGB 13.1 g/dL (12.0-15.0); Lymphocytes # (A) 1.79 X 10*3/uL (0.90-5.00); Lymphocytes % (A) 29.4 %; MCH 28.1 pg (27.0-32.0); MCHC 31.6 g/dL (32.0-37.0); MCV 88.7 fL (80.0-97.0); Mean Platelet Volume 11.6 fL (9.5-12.2); Monocytes # (A) 0.47 X 10*3/uL (0.20-1.00); Monocytes % (A) 7.7 %; Neutrophils # (A) 3.62 X 10*3/uL (1.80-7.70); Neutrophils % (A) 59.4 %; Platelet Count 215 X 10*3/uL (140-440); RBC 4.67 X 10*6/uL (4.10-5.20); RDW 12.8 % (11.5-14.5); WBC 6.09 X 10*3/uL (4.50-10.00)
[2020-06-02 19:44] LABS: African American GFR (CKD) 94.2 (60.0-200.0); Albumin 4.4 g/dL (3.80-4.90); Anion Gap 5.1 mmol/L (4.00-12.00); BUN/Creat Ratio 21.25 Ratio (12.00-20.00); Calcium 9.8 mg/dL (8.7-10.3); Carbon Dioxide 29.9 mmol/L (21.6-31.8); Globulin 2.2 g/dL (1.6-3.3); Non-African American GFR(CKD) 81.3 (60.0-200.0); Potassium 4.7 mmol/L (3.5-5.5); Total Bilirubin 0.4 mg/dL (0.3-1.2); Total Protein 6.6 g/dL (6.2-8.2)
== END | disposition home or self-care (01) ==
LOC: LABWHC1 11:31
PROVIDERS: ATTEND Family Medicine
DX: E04.1 Nontoxic single thyroid nodule (principal)
CPT/HCPCS: 36415; 80053; 85025

== ENCOUNTER → 2020-07-06 | Outpatient (CLI) | payer BC ==
--- NOTE | 2020-07-06 23:07 | MR ---
EXAMINATION TYPE: MR brain/cspine wo DATE OF EXAM: 07/06/2020 COMPARISON: NONE HISTORY: Numbness/ tingling to arms ( mainly left) twitches to left side of face, ringing in ears, le ft sided headache. TECHNIQUE: Multiplanar, multisequence imaging of the brain and brainstem and cervical spine are all p erformed without IV contrast. FINDINGS: BRAIN: Diffusion weighted images demonstrate no evidence of a recent infarct or other diffusion abnormality. The ventricular system and cisternal spaces are normal in size and appearance. The brain volume is a ge appropriate. Few small scattered foci of T2 hyperintensity seen throughout the white matter bilate rally. Approximately 6-10 scattered lesions. For reference one of the larger lesions is a 11 x 8 mm l eft frontal periventricular lesion axial image 21. Of more suspicion is a right 11 by 6 mm cerebella r peduncular low T1 and increased T2 lesion axial image 10 and coronal image 18. This is near junctio n of the lateral aspect of the mid kirstie. Midline structures demonstrate normal morphology. The craniocervical junction appears within normal limits. Normal vascular flow voids are present. The visualized sinuses are clear and the globes are intact. IMPRESSION: Mild nonspecific white matter changes. A nonspecific 11 x 6 mm lesion right cerebellar pe duncle near its junction with lateral aspect of the right mid kirstie. Differential includes demyelinati ng disease, old infarct, primary mass or neoplasm not excluded. Advise contrast enhanced MRI to [facility] er evaluate. C-SPINE: FINDINGS: Sagittal images of the cervical spine show the craniocervical junction to appear within nor mal limits. The cervical and upper thoracic spinal cord is normal in course, caliber, and signal. Th ere is grade 1 retrolisthesis C4 on C5. The vertebral body heights are normal. There is mild to mode rate disc space narrowing C6-C7 level. Heterogeneity of bone marrow signal intensity is present. Axial images show C2-C3 level to appear within normal limits. Axial images at C3-C4 level tiny right paracentral disc protrusion effacing anterior thecal sac. Axial images at C4-C5 level show focal right paracentral disc protrusion effacing the anterior thecal sac. Axial images at C5-C6 level show uncovertebral facet degenerative changes bilaterally. There is broad -based right paracentral disc protrusion effacing the anterior thecal sac, there is mild to moderate bilateral neural foraminal narrowing. Axial images at C6-C7 level shows broad-based right paracentral disc protrusion effacing the anterior thecal sac and causing moderate right right-sided neural foraminal narrowing. Axial images at C7-T1 level appear within normal limits. There are scattered subcentimeter T2 hyperintense thyroid nodules noted. IMPRESSION: Spondylolisthesis C6-C7 level. Multilevel degenerative changes C3-C4 through C6-C7 levels as detailed above.
== END | disposition home or self-care (01) ==
LOC: RADMRIMAIN 20:01
PROVIDERS: ATTEND Psychiatry & Neurology Neurology
DX: G93.9 Disorder of brain, unspecified (principal); M43.12 Spondylolisthesis, cervical region; M47.812 Spondylosis without myelopathy or radiculopathy, cervical region; M50.223 Other cervical disc displacement at C6-C7 level
CPT/HCPCS: 70551; 72141

== ENCOUNTER → 2020-07-11 | Outpatient (CLI) | payer BC ==
--- NOTE | 2020-07-11 11:24 | MR ---
EXAMINATION TYPE: MR brain w con DATE OF EXAM: 07/11/2020 COMPARISON: MRI brain without contrast 5 days ago HISTORY: Numbness/ tingling to arms ( mainly left) twitches to left side of face, ringing in ears. P ost john sequences suggested in 07-06-20 MRI Brain wo TECHNIQUE: Multiplanar, multisequence images of the brain and brainstem is performed with IV contrast, utilizing 7.5 mL intravenous Gadavist . FINDINGS: Post contrast images demonstrate no abnormal enhancement there are enhancing lesions with p articular attention to the largest T1 hypointense and T2 hyperintense lesions left frontal periventri cular white matter axial image 49 and right posterior lateral kirstie at level of cerebellar peduncle ax ial image 25. The dural venous sinuses appear patent. Findings make mass or neoplasm unlikely. Atypic al infection and/or demyelinating disease need to be considered. No enhancement to suggest active dem yelinating disease currently. Correlate clinically. IMPRESSION: As above.
== END | disposition home or self-care (01) ==
LOC: RADMRIMAIN 10:13
PROVIDERS: ATTEND Psychiatry & Neurology Neurology
DX: R90.82 White matter disease, unspecified (principal)
CPT/HCPCS: 70552; A9585

== ENCOUNTER 2020-07-16 09:20 | Day surgery (SDC) | payer BC ==
[2020-07-14 15:45] VITALS: BMI 23.3
[2020-07-16 09:43] VITALS: TEMP 97.3
[2020-07-16] MEDS ORDERED: LIDOCAINE 1% (10MG/ML) FOR IV START INTRADERMA ONE (09:54)
[2020-07-16] MEDS ORDERED: LACTATED RINGERS 1,000 ML IV ONE (09:54)
[2020-07-16] MEDS ORDERED: MIDAZOLAM 2 MG/2 ML VIAL ONE (10:01)
[2020-07-16] MEDS ORDERED: fentaNYL (PF) 50 MCG/ML 2 ML AMP ONE (10:01)
--- NOTE | 2020-07-16 10:17 | P.PCN ---
Date of Procedure: 07/16/20 Procedure(s) Performed: Preoperative diagnosis: Multiple sclerosis Post operative diagnoses: Multiple sclerosis Procedure= lumbar puncture Anesthesia = moderate sedation with Versed 2 mg and fentanyl 50 g Condition: stable Complication: none. Description of the procedure procedure risk and benefits discussed with the patient and family, consent signed. Patient and the procedure area placed in sitting position , monitors applied sedation was given 2 the patient's anxiety, back prepped with chlorhexidine 3 times been local infiltration of the skin and subcutaneous tissue with lidocaine 1% 2 mL for skin and subcu interstitial frustrations at L4 5 levels then 22-gauge Quincke-type needle advanced slowly at L4- 5 interlaminar space there was positive cerebrospinal fluid which was clear, no heme, no paresthesia ,total of 9 ML of clear cerebrospinal fluid collected in 4 different tubes 2-2-1/2 mL in each, then the needle removed and a Band-Aid applied and patient tolerated the procedure well without any complications.
[2020-07-16] MEDS ORDERED: IV FLUID CONTINUATION 1,000 ML IV ONE (10:20)
[2020-07-16 10:38] VITALS: RESP 16
[2020-07-16 11:00] VITALS: BP 120/81; PULSE 56
[2020-07-16 12:20] LABS: ALT 17 U/L (4-34); AST 31 U/L (14-36)
[2020-07-16 12:33] LABS: T4, Free (Free Thyroxine) 1.15 ng/dL (0.78-2.19)
[2020-07-16 13:42] LABS: Glucose,CSF 52 mg/dL (40-70); Total Protein,CSF 45 mg/dL (12-60)
[2020-07-16 15:12] LABS: Appearance,CSF Clear; Nucleated Cells, CSF 0 u/L (0-5); Red Blood Cell,CSF 0 u/L (0-10)
[2020-07-16 15:17] LABS: CSF Tube Number 3
[2020-07-16 22:49] LABS: Anti-Smith Ab Interp NEGATIVE (NEGATIVE); DNA Double-Stranded NEGATIVE (NEGATIVE)
[2020-07-17 01:33] LABS: Rheumatoid Factor, Qnt 4 IU/mL (0-15)
[2020-07-17 10:54] LABS: VDRL, Qualitative CSF Nonreactive (Nonreactive)
[2020-07-17 12:14] LABS: IgG/Albumin Index (CSF) 0.47 (0.00 - 0.77)
== END 2020-07-16 11:05 | disposition home or self-care (01) ==
LOC: ORPAIN 09:20
PROVIDERS: ATTEND Specialist
DX: G35 Multiple sclerosis (principal)
CPT/HCPCS: 86592 ×2; 86235 ×3; 84439; 88108; 84157; 82945; 82040; 82042; 82784; 83916; 84443; 84450; 84460; 86431; 89050; 86618; 86038; 86225; 87070; 87205; 87102; 87801; 62270; J2250; J3010; 99152

== ENCOUNTER → 2020-11-06 | Outpatient (CLI) | payer BC ==
--- NOTE | 2020-11-07 04:52 | MR ---
EXAMINATION TYPE: MR cspine/tspine wo/w con DATE OF EXAM: 11/06/2020 COMPARISON: MR scan cervical spine 07/06/2020 HISTORY: Headaches, facial/extremity tingling/numbness CONTRAST: Standard multiplanar, multisequence MRI departmental protocol utilizing 7 mL intravenous Gadavist john olinium contrast. The cervical vertebra have normal alignment. There is mild narrowing of disc spaces throughout the ce rvical spine and more noticeable at C5-6 and C6-7. Cervical spinal cord has normal signal pattern. Th ere is no edema. There is small posterior disc bulging at C5-6 and C6-7. The canal is narrowed to 8.5 mm which is the narrowest point at C6-7. The brainstem is intact. There is no compression fracture. Facet joints are intact. There is no sign of cervical paraspinal mass. There is normal alignment of the thoracic vertebra. Thoracic spinal cord appears normal. There is no edema. There is no thoracic spinal stenosis. There is no compression fracture. I see no focal bone de struction. There is no evidence of thoracic paraspinal mass. There is no pathologic enhancement in the cervical and thoracic spine. IMPRESSION: Negative MR scan of the thoracic spine. Minor degenerative disc changes in the cervical spine. No fracture. No evidence of any significant ce rvical spinal stenosis. Cervical spine not changed compared to old exam. No evidence of demyelinating disease.
--- NOTE | 2020-11-07 05:31 | MR ---
EXAMINATION TYPE: MR brain wo/w con DATE OF EXAM: 11/06/2020 COMPARISON: 07/11/2020 HISTORY: Headaches, facial tingling/numbness CONTRAST: Standard multiplanar, multisequence MRI departmental protocol utilizing 7 mL intravenous Gadavist john olinium contrast. Ventricles have normal size. There is no mass effect nor midline shift. There is no evidence of intra cranial hemorrhage. Diffusion images show no evidence of an acute infarct. There is minimal atrophy a ppropriate for age. On the T2 and FLAIR images there are white matter high signal foci that measure 11 mm adjacent to the frontal horn left lateral ventricle. There are other smaller lesions in the anterior centrum semiova le bilaterally that measure up to 5 mm. Total number is less than 10. There is a 12 x 7 mm area of in creased signal in the right cerebellar peduncle. The brainstem is intact. Corpus callosum is intact. The contrast images show no pathologic enhancement. The orbits appear intact. There is normal enhance ment of the venous sinuses. I see no pathologic enhancement. IMPRESSION: White matter lesions as above are not significantly different than previous exam. No enhancement. The se could relate to demyelinating disease. No evidence of a new white matter lesion.
== END | disposition home or self-care (01) ==
LOC: RADMRIMAIN 14:41
PROVIDERS: ATTEND Internal Medicine
DX: R90.82 White matter disease, unspecified (principal)
CPT/HCPCS: 70553; 72156; 72157; A9585

== ENCOUNTER → 2021-04-07 | Outpatient (CLI) | payer BC ==
[2021-04-07 14:46] LABS: Basophils # (A) 0.06 X 10*3/uL (0.00-0.10); Eosinophils % (A) 1.6 %; HCT 44.1 % (37.2-46.3); HGB 13.5 g/dL (12.0-15.0); Lymphocytes # (A) 2.17 X 10*3/uL (0.90-5.00); Lymphocytes % (A) 35.7 %; MCH 27.5 pg (27.0-32.0); MCHC 30.6 g/dL (32.0-37.0); MCV 89.8 fL (80.0-97.0); Mean Platelet Volume 10.7 fL (9.5-12.2); Monocytes % (A) 8.2 %; Neutrophils # (A) 3.23 X 10*3/uL (1.80-7.70); Neutrophils % (A) 53.3 %; Platelet Count 245 X 10*3/uL (140-440); RBC 4.91 X 10*6/uL (4.10-5.20); RDW 12.9 % (11.5-14.5); WBC 6.07 X 10*3/uL (4.50-10.00)
[2021-04-07 15:37] LABS: African American GFR (CKD) 96.6 (60.0-200.0); Albumin 4.5 g/dL (3.8-4.9); Albumin/Globulin Ratio 1.76 (1.60-3.17); Anion Gap 11.2 mmol/L (10.00-18.00); BUN/Creat Ratio 18.49 Ratio (12.00-20.00); Blood Urea Nitrogen 14.4 mg/dL (9.0-27.0); Carbon Dioxide 26.4 mmol/L (20.0-27.5); Globulin 2.6 g/dL (1.6-3.3); HDL Cholesterol 76.5 mg/dL (40.00-60.00); Non-African American GFR(CKD) 83.3 (60.0-200.0); Potassium 4.3 mmol/L (3.5-5.5); T4, Free (Free Thyroxine) 1.17 ng/dL (0.800-1.800); Total Bilirubin 0.3 mg/dL (0.30-1.20); Total Protein 7.1 g/dL (6.2-8.2); Triglycerides 46.8 mg/dL (0.00-149.00)
[2021-04-07 15:51] LABS: Chol/HDL Ratio 2.81 Ratio
== END | disposition home or self-care (01) ==
LOC: LABWHC1 09:41
PROVIDERS: ATTEND Family Medicine
DX: Z00.00 Encounter for general adult medical examination without abnormal findings (principal); E04.1 Nontoxic single thyroid nodule; E55.9 Vitamin D deficiency, unspecified
CPT/HCPCS: 36415; 80053; 80061; 82306; 83721; 84439; 84443; 85025

== ENCOUNTER → 2021-04-13 | Outpatient (CLI) | payer BC ==
--- NOTE | 2021-04-13 10:28 | US ---
EXAMINATION TYPE: US thyroid st tissue head/neck DATE OF EXAM: 04/13/2021 COMPARISON: Thyroid ultrasound April 01, 2020 and 2018 CLINICAL HISTORY: E04.1 thyroid nodule. GLAND SIZE: Right Lobe: 5.1 x 1.6 x 1.7 cm Overall Parenchyma: homogenous Left Lobe: 5.4 x 1.3 x 1.5 cm Overall Parenchyma: homogeneous Isthmus Thickness: 0.17 cm NODULES RIGHT: # of nodules measured on right: 1 1. 0.4 X 0.3 x 0.4 cm, mid, cystic or almost completely cystic, anechoic nodule, which is wider dez n tall, with smooth margins, without echogenic foci. Prior size:0.6 X 0.4 x 0.5cm Multiple subcentimeter nodules largest measured. LEFT: # of nodules measured on left: 1 1. 0.5 X 0.3 x 0.5 cm, mid , solid or almost completely solid, hypoechoic nodule, which is wider th an tall, with smooth margins, without echogenic foci. Prior size:0.6 X 0.6 x 0.6cm Multiple subcentimeter nodules largest measured. ISTHMUS: # of nodules measured in the isthmus: 0 Bilateral neck scanned, no evidence of lymphadenopathy. Heterogeneous normal-size thyroid with small nodules redemonstrated. IMPRESSION: As above. No significant change from prior.
== END | disposition home or self-care (01) ==
LOC: RADUSWWP 08:27
PROVIDERS: ATTEND Family Medicine
DX: E04.1 Nontoxic single thyroid nodule (principal)
CPT/HCPCS: 76536

== ENCOUNTER → 2021-04-13 | Outpatient (CLI) | payer BC ==
[2021-04-13 08:52] VITALS: BP 128/79; PULSE 62; RESP 18; TEMP 97.9
--- NOTE | 2021-04-13 09:58 | P.HPOB ---
History of Present Illness H&P Date: 04/13/21 Chief Complaint: The patient is here for her routine gynecologic exam. This is a 60-year-old G0 with an LMP of 2013. The patient is here to establish with this office. She states it has been about 5 years since her last pelvic exam. She believes she had 2 or 3 episodes of blood specks from the vagina in January 2021. She states it was the size of a dot made by a pen. She states she is not sure if it was actually blood since it was so small. She denies any more of these episodes since January. She had some low abdominal discomfort in February, but this did resolve. She is otherwise without gynecologic complaints. Review of Systems The patient's weight has been stable over the last year. She denies respiratory, cardiac, or G.I. problems. Neuro: She has had some various neurologic symptoms such as tingling in the extremities and ringing in the ears. She is currently undergoing a neurologic workup and also autoimmune testing. Past Medical History Past Medical History: No Reported History, GERD/Reflux, Hearing Disorder / Deafness, Hyperlipidemia Additional Past Medical History / Comment(s): Diagnosed with pulmonary fibrosis, currently not requiring any medications. 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 She had some type of polyp removed from the vagina. History of Any Multi-Drug Resistant Organisms: None Reported Past Surgical History: Breast Surgery Additional Past Surgical History / Comment(s): Bilateral breast augmentation, breast implants removed 2019, EGD. Colonoscopy 2015(next after 10yr). Past Anesthesia/Blood Transfusion Reactions: Motion Sickness Past Psychological History: Anxiety, Depression Additional Psychological History / Comment(s): Hx depression, none now. Smoking Status: Never smoker Past Alcohol Use History: None Reported Past Drug Use History: None Reported Additional History: She is single and is not seeing anybody at this time. She is currently not sexually active. 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 - Past Family History Father Family Medical History: Coronary Artery Disease (CAD), Dementia, Hypertension, Myocardial Infarction ([place]) Mother Family Medical History: Cancer, Coronary Artery Disease (CAD), Dementia, Diabetes Mellitus, GI Bleed, Hypertension, Myocardial Infarction ([place]) Additional Family Medical History / Comment(s): Mother had breast cancer. Pt has a 1st cousin who recieved a heart transplant. Sister(s) Family Medical History: Cancer, Coronary Artery Disease (CAD), Seizure Disorder, Thyroid Disorder Additional Family Medical History / Comment(s): Sister is . She had breast cancer. She was developmentally delayed. She also had epilepsy. Medications and Allergies Home Medications Medication Instructions Recorded Confirmed Type Cholecalciferol [Vitamin D3 (25 50 mcg PO DAILY 04/13/21 04/13/21 History Mcg = 1000 Iu)] Pedi Multivit No.25/Folic Acid 1 tab PO DAILY 04/13/21 04/13/21 History [Flintstones Multivit Chew Tab] Allergies Allergy/AdvReac Type Severity Reaction Status Date / Time codeine Allergy Confusion Verified 04/13/21 08:47 erythromycin base Allergy Rash/Hives Verified 04/13/21 08:47 Exam Vital Signs Temp Pulse Resp BP Pulse Ox 04/13/21 08:48 97.9 F 62 18 128/79 100 Intake and Output 04/12/21 04/13/21 04/13/21 22:59 06:59 14:59 Other: Weight 78.018 kg Height 5 feet 10 inches, weight 172 pounds, BMI 24.7. This is a well-developed well-nourished white female who is alert and oriented times 3 in no acute distress. HEENT: Within normal limits. NECK: Supple without mass or thyromegaly. CHEST AND LUNGS: Clear to auscultation. HEART: Regular rate and rhythm. BREASTS: Are without mass or discharge. The left nipple is inverted and the patient states this has been this way for many years. AXILLARY EXAM: Negative for adenopathy. BACK: Negative for CVA tenderness. ABDOMEN: Soft, nontender, without palpable masses. PELVIC EXAM: Normal external genitalia with mild atrophy. Cervix and vagina appear normal is mild atrophy. There is no unusual discharge. There is no evidence of prolapse. The uterus is midposition, nongravid size and nontender. There are no palpable adnexal masses or tenderness. RECTAL EXAM: Rectovaginal exam is negative for mass or tenderness and is negative for occult blood. EXTREMITIES: Nontender. IMPRESSION: 1. 60-year-old menopausal female with normal gynecologic exam. 2. Possible episodes of postmenopausal minimal spotting 2 months ago. PLAN: 1. Pap smear cotest was performed. 2. Self breast awareness was discussed with the patient. We have also discussed symptoms associated with inflammatory breast cancer. 3. Screening mammogram is scheduled for 04/20/2021 and the order slip was given to the patient for this. 4. Osteoporosis prevention was discussed. I have stressed the importance of adequate calcium, vitamin D and regular exercise. Recommended amounts of calcium and vitamin D were also discussed. We will plan on doing bone density testing in 1 year. 5. Pelvic ultrasound was recommended for the small postmenopausal spotting. The order slip was given to the patient for this. 6. We will obtain records from Dr. Zurita regarding some type of polyp removal. She is unclear to what was actually done. 7. The patient states she had some gynecologic care done at the [facility] many years ago, but is unsure of what was actually done. She denies any gynecologic surgeries, but but may have had some type of biopsy in the vagina. After reviewing Dr. Zurita's records and getting the ultrasound, we will determine if we need to obtain some records from the [facility]. 8. She was advised to return in one year for her annual well woman exam.
== END ==
LOC: WWCWWP 08:23
PROVIDERS: ATTEND Obstetrics & Gynecology
DX: Z53.9 Procedure and treatment not carried out, unspecified reason (principal)

== ENCOUNTER → 2021-04-20 | Outpatient (CLI) | payer BC ==
[2021-04-20 11:03] LABS: ALT 18 U/L (8-44); AST 27 U/L (13-35)
[2021-04-20 11:17] LABS: Hepatitis A Antibody IgM Nonreactive (Nonreactive); Hepatitis B Core IgM Nonreactive (Nonreactive); Hepatitis B Surface Antigen Nonreactive (Nonreactive); Hepatitis C IgG Antibody Nonreactive (Nonreactive)
== END | disposition home or self-care (01) ==
LOC: LABWHC1 07:18
PROVIDERS: ATTEND Family Medicine
DX: R74.01 Elevation of levels of liver transaminase levels (principal)
CPT/HCPCS: 36415; 80074; 84450; 84460

== ENCOUNTER → 2021-04-20 | Outpatient (CLI) | payer BC ==
--- NOTE | 2021-04-20 10:07 | P.PN ---
Progress Note - Text Progress Note Date: 04/20/21 OUTPATIENT FOLLOW-UP NOTE TEST(S)/RESULTS: Test results from 04/13/2021 include negative Pap smear and negative high-risk HPV testing. METHOD OF NOTIFICATION: The patient was notified by phone. PATIENT COMMENTS: The patient is happy to hear these results. DIAGNOSIS: Negative Pap smear cotest. DISCUSSION: Records were received from Dr. Zurita's office which indicates that a benign polyp was removed on 09/19/2016. The pathology that this may have represented an endocervical and endometrial polypoid growth which was benign. This was also reviewed with the patient. PLAN: She is scheduled for a pelvic ultrasound tomorrow on 04/21/2021. This is for follow-up on her minimal postmenopausal bleeding.
--- NOTE | 2021-04-21 09:25 | MM ---
Reason for exam: screening (asymptomatic). Last mammogram was performed 1 year and 3 months ago. History: Patient is postmenopausal and is nulliparous. Family history of breast cancer in mother at age 86, breast cancer in cousin at age 45, and premenopausal breast cancer in sister at age 39. Implant Removal of both breasts, January 24, 2020. Silicone gel implants in both breasts, August 2011. Physical Findings: A clinical breast exam by your physician is recommended on an annual basis and results should be correlated with mammographic findings. MG 3D Screening Mammo W/Cad Bilateral CC and MLO view(s) were taken. Prior study comparison: January 21, 2020, bilateral MG screening mammo implant/CAD. November 23, 2018, bilateral MG screening mammo implant/CAD. The breast tissue is heterogeneously dense. This may lower the sensitivity of mammography. Previous retropectoral silicone implants have been removed. No significant changes when compared with prior studies. ASSESSMENT: Benign, BI-RAD 2 RECOMMENDATION: Routine screening mammogram of both breasts in 1 year.
== END ==
LOC: RADMAMWWP 06:57
PROVIDERS: ATTEND Family Medicine
DX: Z12.31 Encounter for screening mammogram for malignant neoplasm of breast (principal)
CPT/HCPCS: 77063; 77067

== ENCOUNTER → 2021-04-21 | Outpatient (CLI) | payer BC ==
--- NOTE | 2021-04-21 09:43 | US ---
EXAMINATION TYPE: US pelvis complete transvag DATE OF EXAM: 04/21/2021 COMPARISON: CLINICAL HISTORY: N95.0 Postmenopausal bleeding. PMB in January. Hx fibroid. TECHNIQUE: Transvaginal (TV) and Transabdominal (TA) . Transabdominal sonographic images of the pel vis were acquired. Transvaginal sonographic images were medically necessary to better assess the fol lowing anatomy: Ovaries Date of LMP: 2012 EXAM MEASUREMENTS: Uterus: 4.7 x 3.7 x 1.9 cm Endometrial Stripe: 0.3 cm Right Ovary: 2.3 x 1.9 x 1.3 cm Left Ovary: 1.7 x 0.9 x 1.0 cm 1. Uterus: Retroverted Heterogenous and small in size. Right fibroid= 2.2 x 2.2 x 2.0 cm. Left fib roid = 1.3 x 1.5 x 0.8 cm 2. Endometrium: Trace amount of fluid seen 3. Right Ovary: Appears lobular in shape 4. Left Ovary: wnl 5. Bilateral Adnexa: wnl 6. Posterior cul-de-sac: no free fluid IMPRESSION: 1. Leiomyomatous change of the uterus. Trace free fluid within the endometrium.
--- NOTE | 2021-04-21 10:10 | P.PN ---
Progress Note - Text Progress Note Date: 04/21/21 OUTPATIENT FOLLOW-UP NOTE TEST(S)/RESULTS: Pelvic ultrasound done on 04/21/2021 shows small uterine fibroids, the largest measuring 2.2 cm. The endometrial stripe is 0.3 cm. A trace amount of free fluid is noted within the endometrium. Ovaries appear normal. METHOD OF NOTIFICATION: The patient was notified by phone. PATIENT COMMENTS: DIAGNOSIS: Minimal post menopausal bleeding with normal endometrial stripe by ultrasound. Small uterine fibroids. DISCUSSION: The patient was instructed to call if she has any vaginal bleeding in which case we will consider referral for hysteroscopy and D&C. PLAN: As above. She was advised to return in one year for her annual well woman exam and as needed.
== END | disposition home or self-care (01) ==
LOC: RADUSWWP 07:54
PROVIDERS: ATTEND Obstetrics & Gynecology
DX: N95.0 Postmenopausal bleeding (principal)
CPT/HCPCS: 76830; 76856

== ENCOUNTER → 2021-08-19 | Outpatient (CLI) | payer BC ==
--- NOTE | 2021-08-19 08:55 | CT ---
EXAMINATION TYPE: CT iac wo con DATE OF EXAM: 08/19/2021 COMPARISON: No previous CT scan is available for comparison HISTORY: Lt Otalgia CT DLP: 150mGycm Automated exposure control for dose reduction was used. FINDINGS: The external auditory canals are patent bilaterally. Mild sclerotic changes of the inferior aspect of the left mastoid air cells, otherwise clear mastoid air cells. The middle ear ossicles are symmetric and unremarkable. There is no evidence of suspicious surrounding soft tissue density to s uggest cholesteatoma. The scutum is preserved bilaterally. The cochlea and the semicircular canals are symmetric and unremarkable. Vestibular aqueduct and inte rnal auditory canal appear unremarkable. Temporomandibular joints are maintained bilaterally. Deviat ed bony nasal septum convex to the left side. Mucosal thickening of the left maxillary sinus and to a lesser extent the right posterior ethmoid air cells. IMPRESSION: Mild sclerotic changes of the inferior aspect of the left mastoid air cells, otherwise unremarkable C T scan of the temporal bones. Paranasal sinus disease as described above.
== END | disposition home or self-care (01) ==
LOC: RADCTMAIN 06:54
PROVIDERS: ATTEND Otolaryngology
DX: H92.02 Otalgia, left ear (principal)
CPT/HCPCS: 70480

== ENCOUNTER → 2022-02-13 | Outpatient (CLI) | payer BC ==
--- NOTE | 2022-02-13 15:30 | MR ---
EXAMINATION TYPE: MR cspine/tspine wo con DATE OF EXAM: 02/13/2022 COMPARISON: None HISTORY: Headaches, pain, tingling/numbness. F/U comparison to prior MR. Multiplanar multiecho imaging of the cervical and thoracic spine performed with no contrast. Cervical vertebra have normal alignment. There is degenerative disc space narrowing throughout the ce rvical spine and more noticeable at C5-6 and C6-7. Cervical spinal cord has normal signal pattern. No edema. There are small posterior disc bulging at C4-5 and C5-6 and C6-7. Facet joints are intact. No compression fracture. Brainstem appears intact. IMPRESSION: Multilevel spondylotic mild changes. No fracture. No significant spinal stenosis. Spinal canal measur es 8.5 mm at C5-6 which is the narrowest point. Thoracic spine. The thoracic vertebra have normal alignment. No compression fracture. Disc spaces are fairly normal. No evidence of paraspinal mass. Thoracic spinal cord has normal signal pattern. No edema. No thoracic spinal stenosis. No focal bone destruction. IMPRESSION: Negative MR scan of the thoracic spine.
--- NOTE | 2022-02-14 01:43 | MR ---
EXAMINATION TYPE: MR brain wo/w con DATE OF EXAM: 02/13/2022 COMPARISON: 11/06/2020 HISTORY: Headaches, pain, tingling/numbness. F/U comparison to prior MR. CONTRAST: Standard multiplanar, multisequence MRI departmental protocol images were obtained without contrast a nd with 7.5 mL intravenous Gadavist gadolinium contrast. Ventricles have normal size. There is no mass effect or midline shift. No sign of intracranial hemorr harvey. Diffusion images show no sign of an acute infarct. Corpus callosum is intact. There is 1 cm foc us of increased signal adjacent to the frontal horn left lateral ventricle on the T2 and FLAIR images . There is 15 by 8mm wedge-shaped area of increased signal in the right cerebellar peduncle on the T2 and FLAIR images. No evidence of posterior fossa mass. The globes are symmetric. No evidence of orbi yassine mass. Sella turcica is normal. There is no pathologic enhancement. There is normal enhancement of the venous sinuses. There are a few scattered small foci of increased signal in the periventricular white matter measuring up to 3 mm. Total number is less than 10. IMPRESSION: White matter foci of increased signal are nonenhancing and not significantly different than previous MR scan of 2020. This could be demyelinating disease. No evidence of cortical infarct.
== END | disposition home or self-care (01) ==
LOC: RADMRIMAIN 07:40
PROVIDERS: ATTEND Psychiatry & Neurology Neurology
DX: M47.812 Spondylosis without myelopathy or radiculopathy, cervical region (principal); M48.02 Spinal stenosis, cervical region; M25.512 Pain in left shoulder; M79.604 Pain in right leg; H93.13 Tinnitus, bilateral; R90.89 Other abnormal findings on diagnostic imaging of central nervous system
CPT/HCPCS: 70553; 72141; 72146; A9585

== ENCOUNTER → 2022-04-06 | Outpatient (CLI) | payer BC ==
--- NOTE | 2022-04-06 09:19 | XR ---
EXAMINATION TYPE: XR chest 2V DATE OF EXAM: 04/06/2022 COMPARISON: 03/18/2019, CT chest 04/24/2020 INDICATION: Pulmonary fibrosis left lung nodule TECHNIQUE: Frontal and lateral views of the chest are obtained. FINDINGS: The heart size is normal. The pulmonary vasculature is normal. Faint increased lung markings are in the periphery of the left upper lobe. No significant interval ch veronica is evident. Small density identified on chest CT is not evident on the chest x-ray may have lowe r sensitivity. Recommend CT chest for additional evaluation of pulmonary nodules.. IMPRESSION: 1. No acute pulmonary process radiographically apparent. 2. Some minimal chronic change in the periphery of the left upper lung field. Abnormality identified on CT not evident on chest x-ray. Recommendations: 1. CT chest
== END | disposition home or self-care (01) ==
LOC: RADXRMAIN 08:51
PROVIDERS: ATTEND Internal Medicine Sleep Medicine
DX: J84.10 Pulmonary fibrosis, unspecified (principal); J98.4 Other disorders of lung
CPT/HCPCS: 71046

== ENCOUNTER → 2022-04-14 | Outpatient (CLI) | payer BC ==
[2022-04-14 11:37] LABS: Basophils # (A) 0.04 X 10*3/uL (0.00-0.10); Basophils % (A) 0.6 %; Eosinophils # (A) 0.13 X 10*3/uL (0.04-0.35); HCT 44.7 % (37.2-46.3); HGB 13.8 g/dL (12.0-15.0); Immature Grans, Automated 0.3 %; Lymphocytes # (A) 1.63 X 10*3/uL (0.90-5.00); Lymphocytes % (A) 25.3 %; MCH 27.5 pg (27.0-32.0); MCHC 30.9 g/dL (32.0-37.0); MCV 89.2 fL (80.0-97.0); Mean Platelet Volume 11.2 fL (9.5-12.2); Monocytes # (A) 0.63 X 10*3/uL (0.20-1.00); Monocytes % (A) 9.8 %; NRBC Per 100 WBC 0 /100 WBCS (0.0-0.0); Platelet Count 238 X 10*3/uL (140-440); RBC 5.01 X 10*6/uL (4.10-5.20); RDW 12.6 % (11.5-14.5); WBC 6.45 X 10*3/uL (4.50-10.00)
[2022-04-14 15:51] LABS: LDL Cholesterol,Calculated 119.7 mg/dL (0.0-131.0); VLDL Calculation 10.04 mg/dL (5.00-40.00)
[2022-04-14 15:52] LABS: ALT 19 U/L (8-44); AST 30 U/L (13-35); African American GFR (CKD) 87.8 (60.0-200.0); Albumin 4.4 g/dL (3.8-4.9); Albumin/Globulin Ratio 1.39 (1.60-3.17); Alkaline Phosphatase 69 U/L (41-126); BUN/Creat Ratio 18.62 Ratio (12.00-20.00); Blood Urea Nitrogen 15.6 mg/dL (9.0-27.0); Calcium 10.4 mg/dL (8.7-10.3); Carbon Dioxide 28.8 mmol/L (20.0-27.5); Chloride 101 mmol/L (96-109); Globulin 3.2 g/dL (1.6-3.3); Glucose 90 mg/dL (70-110); Non-African American GFR(CKD) 75.8 (60.0-200.0); Potassium 5.2 mmol/L (3.5-5.5); Sodium 138 mmol/L (135-145); Total Protein 7.6 g/dL (6.2-8.2)
== END | disposition home or self-care (01) ==
LOC: LABWHC1 07:10
PROVIDERS: ATTEND Family Medicine
DX: Z00.00 Encounter for general adult medical examination without abnormal findings (principal); E55.9 Vitamin D deficiency, unspecified
CPT/HCPCS: 36415; 80053; 80061; 82306; 85025

== ENCOUNTER → 2022-04-19 | Outpatient (CLI) | payer BC ==
--- NOTE | 2022-04-19 08:23 | CT ---
EXAMINATION TYPE: CT chest wo con DATE OF EXAM: 04/19/2022 COMPARISON: 04/24/2020 HISTORY: Lung nodule, pulmonary fibrosis unspecified CT DLP: 138.[address] of the chest was performed with lung and mediastinal window settings submitted. The la ck of contrast limits evaluation of the vascular, mediastinal and parenchymal structures including th e upper abdomen. LUNGS: Nodular pleural scarring remain stable bilaterally particularly within the upper lobes. 6.6 mm ground glass nodular density right upper lobe is unchanged relative to prior study. Adjacent linear parenchymal scarring. Additional stable groundglass nodular density right middle lobe medial segment measures 5 mm and also unchanged. Additional 4 mm nodular density lateral segment right middle lobe i mage 37. The lungs are otherwise clear. No evidence for focal consolidation or volume loss. No pleura l effusion present. MEDIASTINUM/MADHURI: Thoracic aorta is of normal caliber with limited evaluation given lack of contrast . The heart is not enlarged. No evidence for mediastinal mass. No lymph nodes greater than 1cm. UPPER ABDOMEN: No significant abnormality is seen. OTHER: No significant other abnormality. IMPRESSION: 1. Stable nodular pleural scarring bilaterally as well as scattered areas of groundglass nodularity. Continued follow-up in one year advised.
== END | disposition home or self-care (01) ==
LOC: RADCTMAIN 07:41
PROVIDERS: ATTEND Internal Medicine Sleep Medicine
DX: R91.1 Solitary pulmonary nodule (principal); J98.4 Other disorders of lung; J84.10 Pulmonary fibrosis, unspecified
CPT/HCPCS: 71250

== ENCOUNTER 2022-06-15 09:54 | Observation (INO) | payer BC ==
--- NOTE | 2022-06-15 10:32 | ED ---
General Adult HPI - General Chief complaint: Chest Pain Stated complaint: chest pain Time Seen by Provider: 06/15/22 10:12 Source: patient, RN notes reviewed, old records reviewed Mode of arrival: ambulatory Limitations: no limitations - History of Present Illness Initial comments: 61-year-old female who presents for evaluation of chest pain. This occurred prior to arrival was an episode that woke the patient from sleep described as an intense pressure and weight on her chest. After she woke it lasted less than a minute in his nearly completely resolved at this time. She did have some symptoms in her left arm as well. She has no prior history of known coronary artery disease. No dyspnea. No fever. No abdominal pain or vomiting. - Related Data Home Medications Medication Instructions Recorded Confirmed No Known Home Medications 06/15/22 06/15/22 Allergies Allergy/AdvReac Type Severity Reaction Status Date / Time COVID-19 (SARS-CoV-2) Allergy Anaphylaxis Verified 06/15/22 11:48 vaccine, frederick erythromycin base Allergy Rash/Hives Verified 06/15/22 11:48 codeine AdvReac Confusion Verified 06/15/22 11:48 Review of Systems ROS Statement: Those systems with pertinent positive or pertinent negative responses have been documented in the HPI. ROS Other: All systems not noted in ROS Statement are negative. Past Medical History Past Medical History: No Reported History, GERD/Reflux, Hearing Disorder / Deafness Additional Past Medical History / Comment(s): "Ringing in ears recently, quickly getting worse". "Found something on my brain, not sure what it is." History of Any Multi-Drug Resistant Organisms: None Reported Past Surgical History: Breast Surgery Additional Past Surgical History / Comment(s): Bilateral breast augmentation, breast implants removed, EGD. Past Anesthesia/Blood Transfusion Reactions: Motion Sickness Past Psychological History: Depression Smoking Status: Never smoker Past Alcohol Use History: None Reported Past Drug Use History: None Reported - Past Family History Father Family Medical History: Coronary Artery Disease (CAD), Dementia, Hypertension, Myocardial Infarction ([place]) Mother Family Medical History: Cancer, Coronary Artery Disease (CAD), Dementia, Diabetes Mellitus, GI Bleed, Hypertension, Myocardial Infarction ([place]) Additional Family Medical History / Comment(s): Mother had breast cancer. Pt has a 1st cousin who recieved a heart transplant. Sister(s) Family Medical History: Cancer, Coronary Artery Disease (CAD), Seizure Disorder, Thyroid Disorder Additional Family Medical History / Comment(s): Sister is . She had breast cancer. She was developmentally delayed. She also had epilepsy. General Exam Limitations: no limitations General appearance: alert, in no apparent distress Head exam: Present: atraumatic, normocephalic Eye exam: Present: normal appearance, PERRL ENT exam: Present: normal exam Neck exam: Present: normal inspection. Absent: tenderness, meningismus Respiratory exam: Present: normal lung sounds bilaterally. Absent: respiratory distress, wheezes Cardiovascular Exam: Present: regular rate, normal rhythm GI/Abdominal exam: Present: soft. Absent: distended, tenderness, guarding, rebound Extremities exam: Present: normal inspection, normal capillary refill. Absent: pedal edema Neurological exam: Present: alert, oriented X3, CN II-XII intact. Absent: motor sensory deficit Psychiatric exam: Present: normal affect, normal mood Skin exam: Present: warm, dry, intact. Absent: cyanosis, diaphoretic Course Vital Signs 06/15/22 06/15/22 10:06 11:10 Temperature 98.0 F Pulse Rate 74 Respiratory 18 Rate Blood Pressure 136/78 126/83 O2 Sat by Pulse 95 Oximetry EKG Findings - EKG Comments: EKG Findings:: EKG: Sinus rhythm rate of 62, ME interval 205, QRS duration 109, QTC 385, no ST segment elevation - EKG Results: EKG: interpreted by [facility] Medical Decision Making - Medical Decision Making Was pt. sent in by a medical professional or institution (, PA, WARPER FIXER, urgent care, hospital, or correction...) When possible be specific @ -[No] Did you speak to anyone other than the patient for history (EMS, parent, family, police, friend...)? What history was obtained from this source @ -[No] Did you review nursing and triage notes (agree or disagree)? Why? @ -[I reviewed and agree with nursing and triage notes] Were old charts reviewed (outside hosp., previous admission, EMS record, old EKG, old radiological studies, urgent care reports/EKG's, correction records)? Report findings @ -[No old charts were reviewed] Differential Diagnosis (chest pain, altered mental status, abdominal pain women, abdominal pain men, vaginal bleeding, weakness, fever, dyspnea, syncope, headache, dizziness, GI bleed, back pain, seizure, CVA, palpatations, mental health, musculoskeletal)? @ -Differential Chest Pain: Stable Angina, Unstable Angina, STEMI, NSTEMI Aortic Dissection, Pneumothorax, Musculoskeletal, Esophageal Spasm GERD, Cholecystitis, Pancreatitis, Zoster, this is not meant to be an all-inclusive list. EKG interpreted by me (3pts min.). @ -[As above] X-rays interpreted by me (1pt min.). @ -Chest x-ray reviewed, no acute findings CT interpreted by me (1pt min.). @ -[None done] U/S interpreted by me (1pt. min.). @ -[None done] What testing was considered but not performed or refused? (CT, X-rays, U/S, labs )? Why? @ -[None] What meds were considered but not given or refused? Why? @ -[None] Did you discuss the management of the patient with other professionals (professionals i.e. , PA, WARPER FIXER, lab, RT, psych nurse, social worker clinical, librarian, teacher, guest relation officer, director of casework services)? Give summary @ -[No] Was smoking cessation discussed for >3mins.? @ -[No] Was critical care preformed (if so, how long)? @ -[No] Were there social determinants of health that impacted care today? How? (Homelessness, low income, unemployed, alcoholism, drug addiction, transportation, low edu. Level, literacy, decrease access to med. care, correction, rehab)? @ -[No] Was there de-escalation of care discussed even if they declined (Discuss DNR or withdrawal of care, Hospice)? DNR status @ -[No] What co-morbidities impacted this encounter? (DM, HTN, Smoking, COPD, CAD, Cancer, CVA, ARF, Chemo, Hep., AIDS, mental health diagnosis, sleep apnea, morbid obesity)? @ -[None] Was patient admitted / discharged? Hospital course, mention meds given and route, prescriptions, significant lab abnormalities, going to OR and other pert inent info. @ -61-year-old female with an episode of chest pain which was typical in nature. This occurred approximately one hour prior to arrival. EKG is sinus rhythm without ST segment changes. She has no prior history of CAD. Pain is resolved with time my evaluation. She has a normal CBC, normal CMP, negative troponin. I feel she will benefit from an observation given the onset was just prior to arrival. Troponin levels will be trended. She'll be admitted with radiology consultation. Undiagnosed new problem with uncertain prognosis? @ -[No] Drug Therapy requiring intensive monitoring for toxicity (Heparin, Nitro, Insulin, Cardizem)? @ -[No] Were any procedures done? @ -[No] Diagnosis/symptom? @ -Chest PAin Acute, or Chronic, or Acute on Chronic? @ -[Acute ] Uncomplicated (without systemic symptoms) or Complicated (systemic symptoms)? @ -Uncomplicated Side effects of treatment? @ -[No] Exacerbation, Progression, or Severe Exacerbation? @ -[No] Poses a threat to life or bodily function? How? (Chest pain, [place], [place], pneumonia, PE, COPD, DKA, ARF, appy, cholecystitis, CVA, Diverticulitis, Homicidal, Suicidal, threat to staff... and all critical care pts) @ -Concern for cardiac ischemia, arrhythmia - Lab Data Result diagrams: 06/15/22 10:34 06/15/22 10:34 Lab Results 06/15/22 06/15/22 06/15/22 Range/Units 10:34 10:34 10:34 WBC 5.3 (3.8-10.6) k/uL RBC 4.80 (3.80-5.40) m/uL Hgb 13.6 (11.4-16.0) gm/dL Hct 41.1 (34.0-46.0) % MCV 85.6 (80.0-100.0) fL MCH 28.3 (25.0-35.0) pg MCHC 33.1 (31.0-37.0) g/dL RDW 12.7 (11.5-15.5) % Plt Count 226 (150-450) k/uL MPV 8.3 Neutrophils % 55 % Lymphocytes % 34 % Monocytes % 6 % Eosinophils % 3 % Basophils % 1 % Neutrophils # 2.9 (1.3-7.7) k/uL Lymphocytes # 1.8 (1.0-4.8) k/uL Monocytes # 0.3 (0-1.0) k/uL Eosinophils # 0.1 (0-0.7) k/uL Basophils # 0.0 (0-0.2) k/uL PT 9.9 (9.0-12.0) sec INR 0.9 (<1.2) APTT 23.6 (22.0-30.0) sec Sodium 139 (137-145) mmol/L Potassium 4.2 (3.5-5.1) mmol/L Chloride 103 (98-107) mmol/L Carbon Dioxide 31 H (22-30) mmol/L Anion Gap 5 mmol/L BUN 19 H (7-17) mg/dL Creatinine 0.65 (0.52-1.04) mg/dL Est GFR (CKD-EPI)AfAm >90 (>60 ml/min/1.73 sqM) Est GFR (CKD-EPI)NonAf >90 (>60 ml/min/1.73 sqM) Glucose 99 (74-99) mg/dL Calcium 9.6 (8.4-10.2) mg/dL Magnesium 2.1 (1.6-2.3) mg/dL Total Bilirubin 0.3 (0.2-1.3) mg/dL AST 30 (14-36) U/L ALT 23 (4-34) U/L Alkaline Phosphatase 68 (38-126) U/L Troponin I (0.000-0.034) ng/mL Total Protein 7.3 (6.3-8.2) g/dL Albumin 4.2 (3.5-5.0) g/dL Lipase 47 (23-300) U/L 06/15/22 Range/Units 10:34 WBC (3.8-10.6) k/uL RBC (3.80-5.40) m/uL Hgb (11.4-16.0) gm/dL Hct (34.0-46.0) % MCV (80.0-100.0) fL MCH (25.0-35.0) pg MCHC (31.0-37.0) g/dL RDW (11.5-15.5) % Plt Count (150-450) k/uL MPV Neutrophils % % Lymphocytes % % Monocytes % % Eosinophils % % Basophils % % Neutrophils # (1.3-7.7) k/uL Lymphocytes # (1.0-4.8) k/uL Monocytes # (0-1.0) k/uL Eosinophils # (0-0.7) k/uL Basophils # (0-0.2) k/uL PT (9.0-12.0) sec INR (<1.2) APTT (22.0-30.0) sec Sodium (137-145) mmol/L Potassium (3.5-5.1) mmol/L Chloride (98-107) mmol/L Carbon Dioxide (22-30) mmol/L Anion Gap mmol/L BUN (7-17) mg/dL Creatinine (0.52-1.04) mg/dL Est GFR (CKD-EPI)AfAm (>60 ml/min/1.73 sqM) Est GFR (CKD-EPI)NonAf (>60 ml/min/1.73 sqM) Glucose (74-99) mg/dL Calcium (8.4-10.2) mg/dL Magnesium (1.6-2.3) mg/dL Total Bilirubin (0.2-1.3) mg/dL AST (14-36) U/L ALT (4-34) U/L Alkaline Phosphatase (38-126) U/L Troponin I <0.012 (0.000-0.034) ng/mL Total Protein (6.3-8.2) g/dL Albumin (3.5-5.0) g/dL Lipase (23-300) U/L Disposition Clinical Impression: Chest pain Disposition: ADMITTED IP TO THIS [facility] Condition: Stable Is patient prescribed a controlled substance at d/c from ED?: No Referrals: Jacob Velásquez MD [Primary Care Provider] - 1-2 days Time of Disposition: 12:47
[2022-06-15 10:50] LABS: Basophils % (A) 1 %; Eosinophils # (A) 0.1 k/uL (0-0.7); Eosinophils % (A) 3 %; HCT 41.1 % (34.0-46.0); HGB 13.6 gm/dL (11.4-16.0); Lymphocytes # (A) 1.8 k/uL (1.0-4.8); Lymphocytes % (A) 34 %; MCH 28.3 pg (25.0-35.0); MCHC 33.1 g/dL (31.0-37.0); MCV 85.6 fL (80.0-100.0); Mean Platelet Volume 8.3; Monocytes # (A) 0.3 k/uL (0-1.0); Monocytes % (A) 6 %; Neutrophils # (A) 2.9 k/uL (1.3-7.7); Neutrophils % (A) 55 %; Platelet Count 226 k/uL (150-450); RDW 12.7 % (11.5-15.5); WBC 5.3 k/uL (3.8-10.6)
[2022-06-15 11:02] LABS: ALT 23 U/L (4-34); AST 30 U/L (14-36); African American GFR (CKD) >90 (>60 ml/min/1.73 sqM); Albumin 4.2 g/dL (3.5-5.0); Alkaline Phosphatase 68 U/L (38-126); Anion Gap 5 mmol/L; Blood Urea Nitrogen 19 mg/dL (7-17); Calcium 9.6 mg/dL (8.4-10.2); Carbon Dioxide 31 mmol/L (22-30); Chloride 103 mmol/L (98-107); Glucose 99 mg/dL (74-99); Lipase 47 U/L (23-300); Magnesium 2.1 mg/dL (1.6-2.3); Non-African American GFR(CKD) >90 (>60 ml/min/1.73 sqM); Potassium 4.2 mmol/L (3.5-5.1); Sodium 139 mmol/L (137-145); Total Bilirubin 0.3 mg/dL (0.2-1.3); Total Protein 7.3 g/dL (6.3-8.2)
[2022-06-15 11:04] LABS: INR 0.9 (<1.2); Partial Thromboplastin Time 23.6 sec (22.0-30.0); Prothrombin Time 9.9 sec (9.0-12.0)
--- NOTE | 2022-06-15 11:40 | XR ---
EXAMINATION TYPE: XR chest 2V DATE OF EXAM: 06/15/2022 COMPARISON: Chest CT April 19, 2022 HISTORY: Chest pain. TECHNIQUE: Frontal and lateral views of the chest are obtained. FINDINGS: There is no focal air space opacity, pleural effusion, or pneumothorax seen. The cardiac silhouette size is stable and within normal limits. There is some multilevel spurring in the lower th oracic spine. Overlying EKG leads are seen. IMPRESSION: No acute process.
[2022-06-15] MEDS ORDERED: ASPIRIN 325 MG TAB PO STA (12:42)
[2022-06-15] MEDS ORDERED: NALOXONE 0.4 MG/ML 1 ML VIAL IV PRN (12:43)
[2022-06-15] MEDS ORDERED: ACETAMINOPHEN TAB 325 MG TAB PO PRN (12:43)
--- NOTE | 2022-06-15 13:16 | P.HPIM ---
History of Present Illness This is a pleasant 7 years old female with no significant past medical history. Documented she has history of GERD and hearing difficulty but she is not on medication. She presents with chest pain which happened this morning after she woke up from a nap lasted about 8 minutes and felt like an elephant sitting on her chest. After 45 minutes is been followed by some numbness in her left upper extremity which lasted also for a few minutes, she exercises in the morning and she denies dyspnea coughing. No change in urine or bowel habits. No fever. Social decided to come to emergency room. Currently she is chest pain-free. She denies smoking alcohol or illicit drugs She has history of pulmonary fibrosis and she follows up with Dr. Solares Also she has chronic numbness in her left side of the body which is not an active issue currently, this been going on for about a year and she follow up with the neurologist from [facility] and she is going to see her third week of June. She is hemodynamically stable Labs reviewed and looks unremarkable. Including CBC, INR, BMP, liver enzymes, troponin, and is negative less than 0.012. EKG showing normal sinus rhythm at [address]-T changes. Chest x-ray: No acute process. Review of Systems Review of systems CONSTITUTIONAL: No fever, no malaise, no fatigue. HEENT: No recent visual problems or hearing problems. Denied any sore throat. CARDIOVASCULAR: No orthopnea, PND, no palpitations, no syncope. PULMONARY: No shortness of breath, no cough, no hemoptysis. GASTROINTESTINAL: No diarrhea, no nausea, no vomiting, no abdominal pain. Normoactive bowel sounds. NEUROLOGICAL: No headaches, no weakness, no numbness. HEMATOLOGICAL: Denies any bleeding or petechiae. GENITOURINARY: Denies any burning micturition, frequency, or urgency. MUSCULOSKELETAL/RHEUMATOLOGICAL: Denies any joint pain, swelling, or any muscle pain. ENDOCRINE: Denies any polyuria or polydipsia. Past Medical History Past Medical History: No Reported History, GERD/Reflux, Hearing Disorder / Deafness Additional Past Medical History / Comment(s): "Ringing in ears recently, quickly getting worse". "Found something on my brain, not sure what it is." History of Any Multi-Drug Resistant Organisms: None Reported Past Surgical History: Breast Surgery Additional Past Surgical History / Comment(s): Bilateral breast augmentation, breast implants removed, EGD. Past Anesthesia/Blood Transfusion Reactions: Motion Sickness Past Psychological History: Depression Smoking Status: Never smoker Past Alcohol Use History: None Reported Past Drug Use History: None Reported - Past Family History Father Family Medical History: Coronary Artery Disease (CAD), Dementia, Hypertension, Myocardial Infarction ([place]) Mother Family Medical History: Cancer, Coronary Artery Disease (CAD), Dementia, Diabetes Mellitus, GI Bleed, Hypertension, Myocardial Infarction ([place]) Additional Family Medical History / Comment(s): Mother had breast cancer. Pt has a 1st cousin who recieved a heart transplant. Sister(s) Family Medical History: Cancer, Coronary Artery Disease (CAD), Seizure Disorder, Thyroid Disorder Additional Family Medical History / Comment(s): Sister is . She had breast cancer. She was developmentally delayed. She also had epilepsy. Medications and Allergies Home Medications Medication Instructions Recorded Confirmed Type No Known Home Medications 06/15/22 06/15/22 History Allergies Allergy/AdvReac Type Severity Reaction Status Date / Time COVID-19 (SARS-CoV-2) Allergy Anaphylaxis Verified 06/15/22 11:48 vaccine, frederick erythromycin base Allergy Rash/Hives Verified 06/15/22 11:48 codeine AdvReac Confusion Verified 06/15/22 11:48 Physical Exam Vitals: Vital Signs Temp Pulse Resp BP Pulse Ox 06/15/22 11:10 126/83 06/15/22 10:06 98.0 F 74 18 136/78 95 Intake and Output 06/14/22 06/15/22 06/15/22 22:59 06:59 14:59 Other: Weight 76.204 kg GENERAL: The patient is alert and oriented x3, not in any acute distress. Well developed, well nourished. HEENT: Pupils are round and equally reacting to light. EOMI. No scleral icterus. No conjunctival pallor. Normocephalic, atraumatic. No pharyngeal erythema. No thyromegaly. CARDIOVASCULAR: S1 and S2 present. No murmurs, rubs, or gallops. PULMONARY: Chest is clear to auscultation, no wheezing or crackles. ABDOMEN: Soft, nontender, nondistended, normoactive bowel sounds. No palpable organomegaly. MUSCULOSKELETAL: No joint swelling or deformity. EXTREMITIES: No cyanosis, clubbing, or pedal edema. NEUROLOGICAL: Gross neurological examination did not reveal any focal deficits. SKIN: No rashes. no petechiae. Results CBC & Chem 7: 06/15/22 10:34 06/15/22 10:34 Labs: Abnormal Lab Results - Last 24 Hours (Table) 06/15/22 Range/Units 10:34 Carbon Dioxide 31 H (22-30) mmol/L BUN 19 H (7-17) mg/dL Assessment and Plan Assessment: Transient Chest pain, followed by transient numbness in the left arm, both resolved now rule out cardiac causes GERD, currently not on medication Pulmonary fibrosis, follow-up with stack supervisor as an outpatient Chronic numbness in the left side of the body and she follows up with a neurologist as an outpatient. Not an active issue Plan: Given the patient exercised history healthy lifestyle the probability of cardiac chest pain is low. However is not entirely ruled out. Continue with serial Troponin Echocardiogram Cardiology consult Continue with aspirin Labs and medication were reviewed.. Continue same treatment. Continue with symptomatic treatment. Resume home medication. Monitor labs and vitals. DVT and GI prophylaxis. Further recommendations as per clinical course of the patie nt DVT prophylaxis: Subcutaneous heparin GI Prophylaxis: Pepcid Prognosis is guarded
[2022-06-15] MEDS: HEPARIN SODIUM,PORCINE/PF 5,000 UNIT/0.5 ML SYRINGE SQ SCH (22:07)
[2022-06-15] MEDS: FAMOTIDINE 20 MG/2 ML VIAL IV SCH (22:07)
[2022-06-16] MEDS ORDERED: ASPIRIN 81 MG PO SCH ×2 (09:00→21:00)
--- NOTE | 2022-06-16 09:04 | P.CRDCN ---
History of Present Illness Consult date: 06/16/22 Consult reason: chest pain History of present illness: History of present illness: This is a 61-year-old female patient with no previous cardiac history, does not follow with a equal opportunity assistant.past medical history of gastroesophageal reflux disease, hearing disorder. We have been asked to evaluate the patient for chest pain. Patient gives history that yesterday morning she got up to take care of her animals went back to bed and then developed mid chest pain that was a pressure-type that woke her up and lasted for a few seconds. She felt she could not breathe at the time it took her a few minutes. She ended up getting up and going over to her neighbor's home while she was driving she developed left arm discomfort. She denies any pain at this time and no shortness of breath. + lightheadedness, no fever or chills, no cough. Family medical history mother had a silent heart attack in father had [place] in his 50s.she denies history of sm oking, no alcohol use, no illicit drug use. EKG sinus rhythm with no acute ST changes Chest x-ray:no acute process CBC within limits normal limits. INR 0.9. Sodium 139, potassium 4.2, BUN 19 and creatinine 0.65. Troponin negative 3. Liver function tests are normal. Magnesium 2.1. Lipase 47. Home cardiac medications: none echocardiogram 2014 revealed EF of 55-60%, borderline concentric left ventricular hypertrophy, mild aortic valve sclerosis without stenosis, trace mitral regurgitation, trace tricuspid regurgitation. Stress echocardiogram 2015:no evidence of stress-induced ischemia Review Of Systems: At the time of my evaluation: Constitutional: No fever, no chills. No weakness, fatigue or lethargy. EENT: No headache. No dizziness. Lungs: No shortness of breath, cough, no sputum production. No wheezing. Cardiovascular: No chest pain, no lower extremity edema. No palpitations. No paroxysmal nocturnal dyspnea. No orthopnea. No lightheadedness or dizziness. No syncopal episodes. Abdominal: No abdominal pain. No nausea, vomiting. No diarrhea. No constipation. No bloody or tarry stools. Genitourinary: No dysuria.. No urinary retention. Musculoskeletal: No myalgias. No muscle weakness, no frequent falls. No back pain. No neck pain. Integumentary: No wounds. No rash. No unusual bruising. Neurologic: No aphasia. No facial droop. No change in mentation. No head injury. No headache. Physical examination: Gen: This is a 61-year-old female. She is resting in bed and appears to be comfortable and in no acute distress VS: reviewed HEENT: Head is atraumatic, normocephalic. Pupils equal, round. Sclerae is anicteric. NECK: Supple. No JVD. . LUNGS: Clear to auscultation. No wheezes or rhonchi. No intercostal retractions. HEART: Regular rate and rhythm. No murmur. ABDOMEN: Soft No tenderness. EXTREMITIES: No pedal edema. No calf tenderness. NEUROLOGICAL: Patient is awake, alert and oriented x3. Assessment: Chest pain, acute coronary syndrome ruled out Gastroesophageal reflux disease Plan: Obtain stress echocardiogram today Obtain 2-D echocardiogram and Doppler study to assess cardiac structure and function if testing is within normal limits, patient is cleared for discharge from cardiology and may follow-up in the office. In one to 2 weeks. Thank you kindly for this consultation. Nurse practitioner note has been reviewed, I agree with documented findings and plan of care. Patient was seen and examined. Past Medical History Past Medical History: No Reported History, GERD/Reflux, Hearing Disorder / Deafness Additional Past Medical History / Comment(s): "Ringing in ears recently, quickly getting worse". "Found something on my brain, not sure what it is." History of Any Multi-Drug Resistant Organisms: None Reported Past Surgical History: Breast Surgery Additional Past Surgical History / Comment(s): Bilateral breast augmentation, breast implants removed, EGD. Past Anesthesia/Blood Transfusion Reactions: Motion Sickness Past Psychological History: Depression Smoking Status: Never smoker Past Alcohol Use History: None Reported Past Drug Use History: None Reported - Past Family History Father Family Medical History: Coronary Artery Disease (CAD), Dementia, Hypertension, Myocardial Infarction ([place]) Mother Family Medical History: Cancer, Coronary Artery Disease (CAD), Dementia, Diabetes Mellitus, GI Bleed, Hypertension, Myocardial Infarction ([place]) Additional Family Medical History / Comment(s): Mother had breast cancer. Pt has a 1st cousin who recieved a heart transplant. Sister(s) Family Medical History: Cancer, Coronary Artery Disease (CAD), Seizure Disorder, Thyroid Disorder Additional Family Medical History / Comment(s): Sister is . She had breast cancer. She was developmentally delayed. She also had epilepsy. Medications and Allergies Home Medications Medication Instructions Recorded Confirmed Type No Known Home Medications 06/15/22 06/15/22 History Allergies Allergy/AdvReac Type Severity Reaction Status Date / Time COVID-19 (SARS-CoV-2) Allergy Anaphylaxis Verified 06/15/22 11:48 vaccine, frederick erythromycin base Allergy Rash/Hives Verified 06/15/22 11:48 codeine AdvReac Confusion Verified 06/15/22 11:48 Physical Exam Vitals: Vital Signs Temp Pulse Pulse Resp BP BP Pulse Ox 06/16/22 02:35 98.2 F 64 17 116/82 96 06/15/22 19:19 98.1 F 60 18 115/67 95 06/15/22 15:00 97.6 F 59 L 16 136/77 98 06/15/22 13:00 56 L 16 121/84 97 06/15/22 12:30 60 21 118/81 97 06/15/22 12:00 56 L 13 115/82 97 06/15/22 11:30 58 L 15 126/83 97 06/15/22 11:10 126/83 06/15/22 11:00 61 14 129/84 97 06/15/22 10:30 65 15 128/87 97 06/15/22 10:06 98.0 F 74 18 136/78 95 Intake and Output 06/15/22 06/16/22 06/16/22 22:59 06:59 14:59 Intake Total 118 Balance 118 Intake: Oral 118 Other: # Voids 1 2 Results 06/15/22 10:34 06/15/22 10:34 Cardiac Enzymes 06/15/22 06/15/22 06/15/22 Range/Units 10:34 10:34 17:27 AST 30 (14-36) U/L Troponin I <0.012 <0.012 (0.000-0.034) ng/mL 06/15/22 Range/Units 21:06 AST (14-36) U/L Troponin I <0.012 (0.000-0.034) ng/mL Coagulation 06/15/22 Range/Units 10:34 PT 9.9 (9.0-12.0) sec APTT 23.6 (22.0-30.0) sec CBC 06/15/22 Range/Units 10:34 WBC 5.3 (3.8-10.6) k/uL RBC 4.80 (3.80-5.40) m/uL Hgb 13.6 (11.4-16.0) gm/dL Hct 41.1 (34.0-46.0) % Plt Count 226 (150-450) k/uL Comprehensive Metabolic Panel 06/15/22 Range/Units 10:34 Sodium 139 (137-145) mmol/L Potassium 4.2 (3.5-5.1) mmol/L Chloride 103 (98-107) mmol/L Carbon Dioxide 31 H (22-30) mmol/L BUN 19 H (7-17) mg/dL Creatinine 0.65 (0.52-1.04) mg/dL Glucose 99 (74-99) mg/dL Calcium 9.6 (8.4-10.2) mg/dL AST 30 (14-36) U/L ALT 23 (4-34) U/L Alkaline Phosphatase 68 (38-126) U/L Total Protein 7.3 (6.3-8.2) g/dL Albumin 4.2 (3.5-5.0) g/dL Current Medications Generic Name Dose Route Start Last Admin Trade Name Freq PRN Reason Stop Dose Admin Acetaminophen 650 mg 06/15/22 12:43 Acetaminophen Tab 325 Mg Tab PO Q6HR PRN Mild Pain or Fever > 100.5 Aspirin 81 mg 06/16/22 09:00 Aspirin 81 Mg PO DAILY NEYDA Famotidine 20 mg 06/15/22 21:00 06/15/22 22:07 Famotidine 20 Mg/2 Ml Vial IV 20 mg Q12HR NEYDA Administration Heparin Sodium (Porcine) 5,000 unit 06/15/22 21:00 06/15/22 22:07 Heparin Sodium,Porcine/Pf 5,000 Unit/0.5 Ml Syringe SQ Not Given Q12HR NEYDA Naloxone HCl 0.2 mg 06/15/22 12:43 Naloxone 0.4 Mg/Ml 1 Ml Vial IV Q2M PRN Opioid Reversal Intake and Output 06/15/22 06/16/22 06/16/22 22:59 06:59 14:59 Intake Total 118 Balance 118 Intake: Oral 118 Other: # Voids 1 2 06/15/22 10:34 06/15/22 10:34
[2022-06-16] MEDS: HEPARIN SODIUM,PORCINE/PF 5,000 UNIT/0.5 ML SYRINGE SQ SCH (09:06)
[2022-06-16] MEDS: FAMOTIDINE 20 MG/2 ML VIAL IV SCH (09:06)
[2022-06-16 10:04] VITALS: RESP 16
--- NOTE | 2022-06-16 11:30 | CA ---
Stress Echo Report Karlie Daniels Age: 61 Gender: F : 1960 Exam Date: 06/16/2022 10:17 Exam Location: [place] [facility] Ht (in): 71 Wt (lb): 168 Ordering Physician: Vonda Monzon Referring Physician: [id number] Human Resources Manager: JAMI Technologist Procedure CPT: Indication: CP ICD-9 Codes: Rhythm: Patient History: Cardiac Medications: SEE CHART Medications in past 24 hours: Contrast: N/A Stress Results Protocol: Sb Total dose(mL): Exercise Duration (min:sec): 9:[address] Depression (mm): Angina Score: Peterson Score: METS: 10.3 Resting HR: 64 Resting BP: 114 / 87 Peak HR: 146 Peak BP: 166 / 68 Max Predicted HR: 160 91 % Max Predicted HR Target HR: 136 Double Product: [id number] Stress Summary: BP Response: Reason for Termination: Reached target heart rate or work-load Cardiac Symptoms: NO SYMPTOMS ECG Analysis Resting ECG: Stress ECG: Arrhythmia: Echo Analysis Resting Echo: Peak Echo Analysis: MEASUREMENTS (Male/Female) Normal Values CONCLUSIONS Excellent exercise tolerance Normal EKG and echo in response to exercise Dr. Booker Lechuga MD (Electronically Signed) Final Date: 16 June 2022 11:29
--- NOTE | 2022-06-16 12:13 | CA ---
Transthoracic Echo Report Name: Karlie Daniels Age: 61 Gender: F : 1960 Exam Date: 06/16/2022 10:32 Exam Location: [place] [facility] Ht (in): 71 Wt (lb): 168 Ordering Physician: Mike Dickinson MD Attending/Referring Phys: [id number], Alok Cnc Machine Programmer Tabitha Carl RDCS Procedure CPT: Indications: Rule out heart disease Cardiac Hx: Technical Quality: Contrast 1: Total Dose (mL): Contrast 2: Total Dose (mL): MEASUREMENTS (Male / Female) Normal Values 2D ECHO LV Diastolic Diameter PLAX 4.5 cm 4.2 - 5.9 / 3.9 - 5.3 cm LV Systolic Diameter PLAX 2.3 cm IVS Diastolic Thickness 0.9 cm 0.6 - 1.0 / 0.6 - 0.9 cm LVPW Diastolic Thickness 1.1 cm 0.6 - 1.0 / 0.6 - 0.9 cm LV Relative Wall Thickness 0.4 RV Internal Dim ED PLAX 2.9 cm LA Volume 32.0 cm??? 18 - 58 / 22 - 52 cm??? M-MODE Aortic Root Diameter MM 3.2 cm LA Systolic Diameter MM 3.1 cm LA Ao Ratio MM 1.0 AV Cusp Separation MM 2.1 cm DOPPLER AV Peak Velocity 141.3 cm/s AV Peak Gradient 8.0 mmHg AV Mean Velocity 97.8 cm/s AV Mean Gradient 4.2 mmHg AV Velocity Time Integral 28.7 cm LVOT Peak Velocity 83.2 cm/s LVOT Peak Gradient 2.8 mmHg MV Area PHT 3.9 cm??? Mitral E Point Velocity 76.9 cm/s Mitral A Point Velocity 87.2 cm/s Mitral E to A Ratio 0.9 MV Deceleration Time 195.8 ms MV E' Velocity 8.5 cm/s Mitral E to MV E' Ratio 9.1 TR Peak Velocity 241.7 cm/s TR Peak Gradient 23.4 mmHg Right Ventricular Systolic Press 28.3 mmHg FINDINGS Left Ventricle Mildly increased left ventricular wall thickness. Normal left ventricular systolic function with no obvious regional wall motion abnormalities. Left ventricular ejection fraction is estimated at 55-60 %. Left ventricular cavity size normal. Normal left ventricular diastolic filling pattern. Right Ventricle Normal right ventricular size and function. Right ventricular systolic pressure within normal limits. Right Atrium Normal right atrial size. Left Atrium Normal left atrial size. Mitral Valve Structurally normal mitral valve. Mitral valve thickened. Mild mitral regurgitation. Aortic Valve No aortic valve stenosis or regurgitation. Tricuspid Valve Structurally normal tricuspid valve. Mild tricuspid regurgitation. Pulmonic Valve Structurally normal pulmonic valve. Pericardium No pericardial effusion. Aorta Normal size aortic root and proximal ascending aorta. CONCLUSIONS Normal LV systolic function. Concentric LVH. Normal intracardiac valves No evidence of pericardial effusion Previewed by: Dr. Booker Lechuga MD (Electronically Signed) Final Date: 16 June 2022 12:13
[2022-06-16 16:34] VITALS: BP 123/78; PULSE 64; TEMP 97.9
--- NOTE | 2022-06-16 19:31 | P.PN ---
Subjective This is a pleasant 7 years old female with no significant past medical history. Documented she has history of GERD and hearing difficulty but she is not on medication. She presents with chest pain which happened this morning after she woke up from a nap lasted about 8 minutes and felt like an elephant sitting on her chest. After 45 minutes is been followed by some numbness in her left upper extremity which lasted also for a few minutes, she exercises in the morning and she denies dyspnea coughing. No change in urine or bowel habits. No fever. Social decided to come to emergency room. Currently she is chest pain-free. She denies smoking alcohol or illicit drugs She has history of pulmonary fibrosis and she follows up with Dr. Solares Also she has chronic numbness in her left side of the body which is not an active issue currently, this been going on for about a year and she follow up with the neurologist from [facility] and she is going to see her third week of June. She is hemodynamically stable Labs reviewed and looks unremarkable. Including CBC, INR, BMP, liver enzymes, troponin, and is negative less than 0.012. EKG showing normal sinus rhythm at [address]-T changes. Chest x-ray: No acute process. 06/16/2022 Patient is awake and alert with no chest pain and her numbness in the left arm is also resolved however i Cartilages on the case and stress test is pending. If stress test Is going to be normal cartilage team after the patient for discharge given her new numbness in her left toe and left upper extremity, patient follow- up with the neurologist and her before it and she has an MRI done on outpatient with 1 month ago however this is a new findings, also patient was not on aspirin at home was started patient on aspirin we are Going to consult neurology for further evaluation, Patient cleared by neurology and cardiology service she may be considered for discharge. Given her complex situation patient will need more than 2 nights hospitalization. Objective - Vital Signs Vital signs: Vital Signs Temp 97.9 F 06/16/22 15:00 Pulse 64 06/16/22 15:00 Resp 16 06/16/22 15:00 BP 123/78 06/16/22 15:00 Pulse Ox 97 06/16/22 15:00 FiO2 Intake & Output 06/16/22 06/16/22 06/17/22 06:59 18:59 06:59 Intake Total 354 Balance 354 Intake: Oral 354 Other: # Voids 2 1 - Exam GENERAL: The patient is alert and oriented x3, not in any acute distress. Well developed, well nourished. HEENT: Pupils are round and equally reacting to light. EOMI. No scleral icterus. No conjunctival pallor. Normocephalic, atraumatic. No pharyngeal erythema. No thyromegaly. CARDIOVASCULAR: S1 and S2 present. No murmurs, rubs, or gallops. PULMONARY: Chest is clear to auscultation, no wheezing or crackles. ABDOMEN: Soft, nontender, nondistended, normoactive bowel sounds. No palpable organomegaly. MUSCULOSKELETAL: No joint swelling or deformity. EXTREMITIES: No cyanosis, clubbing, or pedal edema. NEUROLOGICAL: Gross neurological examination did not reveal any focal deficits. SKIN: No rashes. no petechiae. - Labs CBC & Chem 7: 06/15/22 10:34 06/15/22 10:34 Assessment and Plan Assessment: Transient Chest pain, followed by transient numbness in the left arm, both resolved now rule out cardiac causes Transient numbness in the left fingers and left toes GERD, currently not on medication Pulmonary fibrosis, follow-up with ios architect as an outpatient Chronic numbness in the left side of the body and she follows up with a n eurologist as an outpatient. Not an active issue Plan: Cardiology consult on the case, stress this is going to be negative. They will clear the patient for discharge We will consult neurology for the new Numbness in the left arm and toes Continue with aspirin, patient was started on aspirin at home Labs and medication were reviewed.. Continue same treatment. Continue with symptomatic treatment. Resume home medication. Monitor labs and vitals. DVT and GI prophylaxis. Further recommendations as per clinical course of the patient DVT prophylaxis: Subcutaneous heparin GI Prophylaxis: Pepcid Prognosis is guarded
[2022-06-16] MEDS ORDERED: FAMOTIDINE 20 MG TAB PO SCH (21:00)
[2022-06-17] MEDS ORDERED: ATORVASTATIN 20 MG TAB PO SCH (09:00)
--- NOTE | 2022-06-26 16:42 | P.CNNES ---
History of Present Illness Consult date: 06/16/22 Requesting physician: Mike Dickinson Reason for Consult: Transient numbness in left arm. History of Present Illness: Patient is a 61-year-old female with history of probable multiple sclerosis, currently not on any disease modifying agent, came to the hospital yesterday at 9:54 AM for chest heaviness, couldn't breathe. Patient also had some neurological symptoms going on in the last few weeks as mentioned below. Gayatri strauss states that yesterday she woke up and she felt chest heaviness, couldn't breathe in and out. She tried to relax, and while driving, she noticed her left arm felt weird, therefore she came to the ER. Patient later remembered that last month, only one day it happened when she was having some problem with the words. She couldn't say the word "bucket", instead the word came out as "pumpkin". In the last month, for 2 consecutive days, she noticed that she was talking slow, not as fast as she usually does. It lasted for a few minutes. She denied any slurred speech or any facial droop, and she eats healthy. For the last 1 month, patient has been having some weird feeling involving the lateral 3 toes of both feet. It comes and goes, but sometimes pain with it. In general it is occurring about 5 times a week, on and off usually when she is laying down, sometimes when exercising. Patient says that she suffered from a fall last week when she was walking into the dining room, she started going forwards and went into the table. Patient states that her feet would not catch with the body and she fell. As she was falling, she had no control. Vital signs on arrival blood pressure 136/78, pulse rate 74 temperature 98.0. Blood test shows normal CBC PT/PTT, normal CMP. Troponins negative. Lipase negative. Patient had previous MRI of the brain 02/14/2022 which revealed white matter foci of increased signal are nonenhancing and not significantly different than previous MRI scan of 2020. This could be demyelinating disease. No evidence of cortical infarct. Patient's previous MRI of the cervical spine from 07/06/2020 revealed spondylolisthesis C6-C7 level causing mild right-sided neuroforaminal narrowing. Multilevel degenerative changes C3-C4 through C6-C7 levels. Another MRI of the cervical spine from 02/13/2022 revealed multilevel spondylotic mild changes. No fracture. No significant spinal stenosis. Spinal canal measures 8.5 mm at C5 6 which is the narrowest point. I personally reviewed MRI, agree with the findings. No significant spinal canal stenosis. Patient had previous MRI of the brain 07/11/2020, which revealed no abnormal enhancement, there are non- enhancing lesion with particular attention to the largest T1 hypointense and T2 hyperintense lesions left frontal periventricular white matter and right posterior lateral kirstie at the level of cerebellar peduncle. Atypical infection or demyelinating disease need to be considered. No enhancement to suggest active demyelinating disease currently. Patient's most recent MRI from 02/13/2022 showed similar abnormality. I reviewed all her previous brain MRI also in detail, and agree with the findings. Patient said that she has symptoms involving left side for quite some time related to above MRI abnormalities, but in the last 1-1/2-2 months, she has no issues with the left side. CSF from 07/16/2020 revealed 0 RBC, 0 WBC, proteins normal 45, glucose 52, IgG synthesis rate 0, IgG index normal 0.47 and oligoclonal bands were negative. The CSF sample contains oligoclonal bands however since the corresponding serum contains the same oligoclonal bands, this does not indicate CSF specific oligoclonal banding and this is considered a negative study. Patient has previously negative rheumatoid factor, NEMO, Sjogren's antibodies, anti-Warren antibodies, MEAT SLICER antibodies, dsDNA, Lyme titer, hepatitis panel, B12 572, TSH normal. Patient denies any tobacco or alcohol use, denies any use of drugs. Patient does not take any medications, occasionally takes Tylenol. Currently not on any disease modifying agent. Patient has a strong family history of CAD, both parents had MRI. No family history of strokes. Patient states that she has 3 dogs and 3 cats at home. Review of Systems Constitutional: Denies chills, Denies fever Eyes: denies blurred vision, denies pain Ears: bilateral: tinnitus, deny: ear discharge, earache Ears, nose, mouth and throat: Denies headache, Denies sore throat Cardiovascular: Reports dyspnea on exertion, Reports shortness of breath, Denies syncope Respiratory: Denies cough, Denies excessive sputum, Denies wheezing Gastrointestinal: Denies abdominal pain, Denies diarrhea, Denies nausea, Denies vomiting Genitourinary: Denies flank pain, Denies hematuria Musculoskeletal: Denies myalgias Integumentary: Denies pruritus, Denies rash Neurological: Reports as per HPI Psychiatric: Reports depression, Denies hallucinations, Denies hypersomnia Endocrine: Denies fatigue, Denies weight change Hematologic/Lymphatic: Denies easy bruising Past Medical History Past Medical History: No Reported History, GERD/Reflux, Hearing Disorder / Deafness Additional Past Medical History / Comment(s): "Ringing in ears recently, quickly getting worse". "Found something on my brain, not sure what it is." History of Any Multi-Drug Resistant Organisms: None Reported Past Surgical History: Breast Surgery Additional Past Surgical History / Comment(s): Bilateral breast augmentation, breast implants removed, EGD. Past Anesthesia/Blood Transfusion Reactions: Motion Sickness Past Psychological History: Depression Smoking Status: Never smoker Past Alcohol Use History: None Reported Past Drug Use History: None Reported - Past Family History Father Family Medical History: Coronary Artery Disease (CAD), Dementia, Hypertension, Myocardial Infarction ([place]) Mother Family Medical History: Cancer, Coronary Artery Disease (CAD), Dementia, Diabetes Mellitus, GI Bleed, Hypertension, Myocardial Infarction ([place]) Additional Family Medical History / Comment(s): Mother had breast cancer. Pt has a 1st cousin who recieved a heart transplant. Sister(s) Family Medical History: Cancer, Coronary Artery Disease (CAD), Seizure Disorder, Thyroid Disorder Additional Family Medical History / Comment(s): Sister is . She had breast cancer. She was developmentally delayed. She also had epilepsy. Medications and Allergies Home Medications Medication Instructions Recorded Confirmed Type Aspirin 81 mg PO BID tab 06/16/22 Rx Atorvastatin [Lipitor] 20 mg PO DAILY tab 06/16/22 Rx Allergies Allergy/AdvReac Type Severity Reaction Status Date / Time COVID-19 (SARS-CoV-2) Allergy Anaphylaxis Verified 06/15/22 11:48 vaccine, frederick erythromycin base Allergy Rash/Hives Verified 06/15/22 11:48 codeine AdvReac Confusion Verified 06/15/22 11:48 Physical Examination - Vital Signs Vital Signs: Vital Signs Temp Pulse Resp BP Pulse Ox 06/16/22 15:00 97.9 F 64 16 123/78 97 06/16/22 07:00 97.8 F 71 16 118/75 96 06/16/22 02:35 98.2 F 64 17 116/82 96 06/15/22 19:19 98.1 F 60 18 115/67 95 Intake and Output 06/16/22 06/16/22 06/16/22 06:59 14:59 22:59 Intake Total 236 118 Balance 236 118 Intake: Oral 236 118 Other: # Voids 2 1 Patient is a middle aged female, very pleasant, in no acute distress. Patient is alert awake oriented to time place and person. Speech and language functions are normal. Patient can name and repeat very well. No aphasia or dysarthria. Attention, concentration and fund of knowledge is adequate. On cranial nerve examination, pupils are equal, round and reacting to light, vi sual lyman are full on confrontation, with no neglect on double simultaneous stimulation. Extraocular muscles are intact with no nystagmus. Face is symmetric, tongue protrudes to the midline. Palatal elevation and sensation normal, hearing is decreased slightly and shoulder shrug normal, facial sensation normal. On muscle strength testing, there is no pronator drift and the strength is norm al in arms and legs distally and proximally. Deep tendon reflexes are symmetric and plantars are withdrawal. Sensory to touch is equal with no neglect on double simultaneous stimulation. Cerebellar function showed no ataxia for [id number] testing. No dysdiadochokinesia. No ataxia for [id number] testing on either side. Tone and bulk of muscles normal. Gait deferred.. On general examination, there is no carotid bruit or murmur, S1-S2 audible. Chest is clear on consultation. Abdomen is soft nontender. No organomegaly, bowel sounds present. Peripheral pulses are present. No edema. 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 * Intermittent, transient brief neurological symptoms, which does not appear clear-cut TIA, however still in the differential. * New onset intermittent paresthesias involving the lateral 3 toes of both feet, unclear etiology. Symptoms not typical of TIA. As her symptoms are not persisting, does not appear to be a new demyelinating event. Also her examination is normal. Plan: * Patient has presented with transient neurological symptoms, unclear etiology. Symptoms are not classical for TIA, but concerning. Patient also had transient left-sided chest heaviness, however her 2-D echo and stress test is normal. * Recommend patient starting aspirin 81 mg twice a day. After 4 weeks, then decrease it to one baby aspirin a day. * Patient's lipid panel from 04/14/2022 revealed cholesterol 198, LDL 119, HDL 68 and triglycerides 50.2. Patient was given prescription of Lipitor 20 mg daily. * 2-D echo revealed normal left-ventricular systolic function with EF 55-60%. Concentric LVH. Normal intracardiac valves. No evidence of pericardial effusion. Left atrial size is normal. * Patient's B12 was 572 on 11/12/2018. May consider repeating it outpatient. * patient has an appointment with her neurologist Dr. Olga Morgan at [facility] in [place] in the third week of June 2022. * Patient desperate to go home, as she has 3 cats and 3 dogs at home waiting for her. * Patient is clear for discharge. Patient recommended to return to the hospital, she is any worsening of her neurological symptoms. Time with Patient: Greater than 30
== END 2022-06-16 21:55 | disposition home or self-care (01) ==
LOC: EC 09:54 → 6NMEDSUR 12:43 → OBSVTOIN 06-16 10:09 → INTOOBSV 06-16 10:09 → UNDODISIN 06-16 21:55
PROVIDERS: ADMIT Internal Medicine; ATTEND Internal Medicine
DX: R07.89 Other chest pain (principal); K21.9 Gastro-esophageal reflux disease without esophagitis; F32.A Depression, unspecified; J84.10 Pulmonary fibrosis, unspecified; I08.1 Rheumatic disorders of both mitral and tricuspid valves; Z88.6 Allergy status to analgesic agent; Z88.1 Allergy status to other antibiotic agents; Z88.7 Allergy status to serum and vaccine; Z82.49 Family history of ischemic heart disease and other diseases of the circulatory system; Z80.3 Family history of malignant neoplasm of breast; Z82.0 Family history of epilepsy and other diseases of the nervous system
CPT/HCPCS: 96376; 96374; 99285; 36415; 93005; 93306; 93351; 80053; 83690; 83735; 84484; 85025; 85610; 85730; 71046; G0378 ×2; J1644

== ENCOUNTER → 2022-07-25 | Outpatient (CLI) | payer BC ==
[2022-07-25 11:08] LABS: Basophils # (A) 0.06 X 10*3/uL (0.00-0.10); Basophils % (A) 1.1 %; Eosinophils # (A) 0.11 X 10*3/uL (0.04-0.35); Eosinophils % (A) 2.1 %; HGB 13.8 g/dL (12.0-15.0); Immature Grans, Automated 0.2 %; Lymphocytes # (A) 1.74 X 10*3/uL (0.90-5.00); Lymphocytes % (A) 32.9 %; MCHC 32.1 g/dL (32.0-37.0); MCV 87.4 fL (80.0-97.0); Mean Platelet Volume 11.3 fL (9.5-12.2); Monocytes % (A) 7.6 %; NRBC Per 100 WBC 0 /100 WBCS (0.0-0.0); Neutrophils # (A) 2.97 X 10*3/uL (1.80-7.70); Neutrophils % (A) 56.1 %; Platelet Count 221 X 10*3/uL (140-440); RBC 4.92 X 10*6/uL (4.10-5.20); RDW 12.9 % (11.5-14.5); WBC 5.29 X 10*3/uL (4.50-10.00)
[2022-07-25 11:25] LABS: ALT 23 U/L (8-44); AST 30 U/L (13-35); African American GFR (CKD) 92.9 (60.0-200.0); Albumin 4.5 g/dL (3.8-4.9); Albumin/Globulin Ratio 1.67 (1.60-3.17); Alkaline Phosphatase 74 U/L (41-126); BUN/Creat Ratio 19.25 Ratio (12.00-20.00); Blood Urea Nitrogen 15.4 mg/dL (9.0-27.0); Calcium 10.2 mg/dL (8.7-10.3); Carbon Dioxide 28.2 mmol/L (20.0-27.5); Chloride 105 mmol/L (96-109); Chol/HDL Ratio 2.69 Ratio; Globulin 2.7 g/dL (1.6-3.3); Glucose 93 mg/dL (70-110); LDL Cholesterol,Calculated 105.9 mg/dL (0.0-131.0); Non-African American GFR(CKD) 80.1 (60.0-200.0); Potassium 5.4 mmol/L (3.5-5.5); Sodium 141 mmol/L (135-145); Total Protein 7.2 g/dL (6.2-8.2); VLDL Calculation 9.58 mg/dL (5.00-40.00)
== END | disposition home or self-care (01) ==
LOC: LABWHC1 07:23
PROVIDERS: ATTEND Family Medicine
DX: E78.5 Hyperlipidemia, unspecified (principal)
CPT/HCPCS: 36415; 80053; 80061; 85025

== ENCOUNTER → 2023-05-25 | Outpatient (CLI) | payer BC ==
[2023-05-25 18:18] LABS: Basophils # (A) 0.06 X 10*3/uL (0.00-0.10); Basophils % (A) 0.9 %; Eosinophils # (A) 0.17 X 10*3/uL (0.04-0.35); Eosinophils % (A) 2.5 %; HCT 42.5 % (37.2-46.3); HGB 13.6 g/dL (12.0-15.0); Lymphocytes # (A) 2.46 X 10*3/uL (0.90-5.00); Lymphocytes % (A) 35.9 %; MCH 28.2 pg (27.0-32.0); MCV 88.2 FL (80.0-97.0); Mean Platelet Volume 11.8 FL (9.5-12.2); Monocytes # (A) 0.52 X 10*3/uL (0.20-1.00); Monocytes % (A) 7.6 %; NRBC Per 100 WBC 0 X 10*3/uL (0.00-0.01); Neutrophils # (A) 3.64 X 10*3/uL (1.80-7.70); Platelet Count 232 X 10*3/uL (140-440); RBC 4.82 X 10*6/uL (4.10-5.20); RDW 13.1 % (11.5-14.5); WBC 6.86 X 10*3/uL (4.50-10.00)
[2023-05-25 18:58] LABS: Blood Urea Nitrogen 17.2 mg/dL (9.0-27.0); Chol/HDL Ratio 2.16 Ratio; Glucose 92 mg/dL (70-110); LDL Cholesterol,Calculated 88.2 mg/dL (0.0-131.0); VLDL Calculation 8.98 mg/dL (5.00-40.00)
[2023-05-25 18:59] LABS: ALT 31 U/L (8-44); AST 43 U/L (13-35); Albumin 4.5 g/dL (3.8-4.9); Albumin/Globulin Ratio 1.67 Ratio (1.60-3.17); Alkaline Phosphatase 71 U/L (41-126); Calcium 10.6 mg/dL (8.7-10.3); Carbon Dioxide 27.3 mmol/L (21.6-31.8); Chloride 102 mmol/L (96-109); Globulin 2.7 g/dL (1.6-3.3); Potassium 5.3 mmol/L (3.5-5.5); Sodium 141 mmol/L (135-145); Total Bilirubin 0.4 mg/dL (0.3-1.2); Total Protein 7.2 g/dL (6.2-8.2)
== END | disposition home or self-care (01) ==
LOC: LABWHC1 15:06
PROVIDERS: ATTEND Family Medicine
DX: Z00.00 Encounter for general adult medical examination without abnormal findings (principal)
CPT/HCPCS: 36415; 80053; 80061; 82306; 84443; 85025

== ENCOUNTER → 2023-06-07 | Outpatient (CLI) | payer BC ==
--- NOTE | 2023-06-07 18:36 | MM ---
Reason for Exam: Screening (asymptomatic). Last mammogram was performed 2 year(s) and 2 month(s) ago. Patient History: Menarche at age 13. Patient has no children. Postmenopausal. 01/24/2020, Bilateral Implant Removal. 08/2011, Bilateral Implants. Maternal cousin had breast cancer, age 45. Sister had breast cancer, age 39. Mother had breast cancer, age 86. Risk Values: Galilea 5 year model risk: 5.1%. NCI Lifetime model risk: 22.6%. Prior Study Comparison: 01/20/2016 Bilateral Diagnostic Mammogram, [facility]. 02/01/2017 Bilateral Diagnostic Mammogram, [facility]. 11/23/2018 Bilateral Screening Mammogram, [facility]. 01/21/2020 Bilateral Screening Mammogram, [facility]. 04/20/2021 Bilateral Screening Mammogram, [facility]. Tissue Density: The breasts are heterogeneously dense, which may obscure small masses. Findings: Analyzed By CAD. Changes of previous bilateral breast implant removal. There is no suspicious group of microcalcifications or new suspicious mass in either breast. Overall Assessment: Benign, BI-RAD 2 Management: Screening Mammogram of both breasts in 1 year. SEE NOTE BELOW IN REGARDS TO PATIENT'S INCREASED 5 YEAR GALILEA SCORE AND INCREASED LIFETIME RISK SCORE. Patient should continue monthly self-breast exams. A clinical breast exam by your physician is recommended on an annual basis. This exam should not preclude additional follow-up of suspicious palpable abnormalities. Note on Galilea scores and lifetime risk: 1. A Galilea score greater than 3% is considered moderate risk. If this is the case, consider specialist referral to assess eligibility for a risk reducing agent. 2. If overall lifetime risk for the development of breast cancer is 20% or higher, the patient may qualify for future screening with alternating mammogram and breast MRI. Electronically signed and approved by: Alex Prince M.D. Radiologist
== END | disposition home or self-care (01) ==
LOC: RADMAMWWP 07:01
PROVIDERS: ATTEND Family Medicine
DX: Z12.31 Encounter for screening mammogram for malignant neoplasm of breast (principal); Z78.0 Asymptomatic menopausal state; Z80.3 Family history of malignant neoplasm of breast
CPT/HCPCS: 77067

== ENCOUNTER → 2023-06-15 | Outpatient (CLI) | payer BC ==
--- NOTE | 2023-06-15 08:58 | US ---
EXAMINATION TYPE: US liver DATE OF EXAM: 06/15/2023 COMPARISON: CT 2016, US 2015 CLINICAL INDICATION: Female, 62 years old with history of R94.5 ABNORMAL RESULTS OF LIVER FUNCTION ST UDIES; Liver function tests, pain after eating. TECHNIQUE: Multiple sonographic images of the right upper quadrant are obtained. FINDINGS: EXAM MEASUREMENTS: Liver Length: 16.2 cm Gallbladder Wall: 0.16 cm CBD: 0.42 cm Right Kidney: 10.5 x 5.6 x 3.8 cm DIRECTOR CLINICAL DATA NOTES: Exam is limited due to gas Pancreas: No abnormalities seen. Liver: Appears coarse in echotexture. Gallbladder: No abnormalities seen Evidence for sonographic Gamez's sign: No CBD: Appears wnl Right Kidney: No hydronephrosis or masses seen IMPRESSION: 1. No evidence for acute process. 2. Coarsened echotexture to the liver parenchyma correlate for hepatocellular disease.
== END | disposition home or self-care (01) ==
LOC: RADUSWWP 07:12
PROVIDERS: ATTEND Family Medicine
DX: R94.5 Abnormal results of liver function studies (principal); K76.9 Liver disease, unspecified
CPT/HCPCS: 76705

== ENCOUNTER → 2023-07-13 | Outpatient (CLI) | payer BC ==
[2023-07-13 11:18] LABS: Basophils # (A) 0.04 X 10*3/uL (0.00-0.10); Basophils % (A) 0.8 %; Eosinophils # (A) 0.14 X 10*3/uL (0.04-0.35); Eosinophils % (A) 2.8 %; HCT 41.5 % (37.2-46.3); HGB 13.2 g/dL (12.0-15.0); Lymphocytes # (A) 1.76 X 10*3/uL (0.90-5.00); Lymphocytes % (A) 34.8 %; MCH 27.8 pg (27.0-32.0); MCHC 31.8 g/dL (32.0-37.0); MCV 87.6 FL (80.0-97.0); Mean Platelet Volume 11.4 FL (9.5-12.2); Monocytes # (A) 0.43 X 10*3/uL (0.20-1.00); Monocytes % (A) 8.5 %; NRBC Per 100 WBC 0 X 10*3/uL (0.00-0.01); Neutrophils # (A) 2.68 X 10*3/uL (1.80-7.70); Neutrophils % (A) 52.9 %; Platelet Count 232 X 10*3/uL (140-440); RBC 4.74 X 10*6/uL (4.10-5.20); RDW 13.2 % (11.5-14.5); WBC 5.06 X 10*3/uL (4.50-10.00)
[2023-07-13 11:31] LABS: ALT 21 U/L (8-44); AST 31 U/L (13-35); Albumin 4.3 g/dL (3.8-4.9); Albumin/Globulin Ratio 1.72 Ratio (1.60-3.17); Alkaline Phosphatase 73 U/L (41-126); BUN/Creat Ratio 21.86 Ratio (12.00-20.00); Blood Urea Nitrogen 15.3 mg/dL (9.0-27.0); Calcium 10.1 mg/dL (8.7-10.3); Carbon Dioxide 25.8 mmol/L (21.6-31.8); Chloride 105 mmol/L (96-109); Globulin 2.5 g/dL (1.6-3.3); Glucose 94 mg/dL (70-110); Potassium 4.8 mmol/L (3.5-5.5); Sodium 139 mmol/L (135-145); Total Bilirubin 0.2 mg/dL (0.3-1.2); Total Protein 6.8 g/dL (6.2-8.2)
== END | disposition home or self-care (01) ==
LOC: LABWHC1 08:30
PROVIDERS: ATTEND Internal Medicine Gastroenterology
DX: R74.8 Abnormal levels of other serum enzymes (principal)
CPT/HCPCS: 36415; 80053; 81596; 85025

== ENCOUNTER → 2023-09-21 | Outpatient (CLI) | payer BC ==
--- NOTE | 2023-09-22 14:47 | XR ---
EXAMINATION TYPE: XR foot complete LT DATE OF EXAM: 09/21/2023 5:11 PM CLINICAL INDICATION:Female, 63 years old with history of M79.672 M25.572 S93.402A; [facility] COMPARISON: None TECHNIQUE: XR foot complete LT examined in the AP, oblique, and lateral projections. FINDINGS: No evidence of any acute osseous pathology. No evidence of soft tissue swelling. Calcaneal Achilles enthesophyte. Multifocal degeneration changes throughout the joints of the foot with osteophyte forma tion and joint space narrowing. The Achilles tendon insertion on the calcaneus appears within normal limits. IMPRESSION: 1. No evidence of acute fracture. 2. Multifocal degeneration changes throughout the joints of the foot.
== END | disposition home or self-care (01) ==
LOC: RADXRMAIN 16:47
PROVIDERS: ATTEND Family Medicine
DX: M19.072 Primary osteoarthritis, left ankle and foot (principal); S93.402A Sprain of unspecified ligament of left ankle, initial encounter